=== PATIENT | female | born 1950 | race Caucasian/White ===

== ENCOUNTER 2017-01-30 15:48 | Inpatient (IN) | payer MEDICARE ==
[~2017-01-30] VITALS: Ht 162.6 cm; Wt 62.1 kg
[~2017-01-30 15:48] MED LIST: AMBI12.5 PO; AMOX500C PO; CHLO5CAP3 PO; DIAZ10 PO; FOLI1; FOLI5INJ IJ; LORTA5 PO; NORC7.5T PO; THIA50CA PO; XARE10TA OR
--- NOTE | 2017-01-30 16:09 | PD ---
HPI Chief Complaint: generalized weakness Time Seen by Provider: 16:09 Travel History International Travel<30 days: No Contact w/Intl Traveler<30days: No Traveled to known affect area: No History of Present Illness HPI 66-year-old female came to the emergency room brought by her with history of generalized weakness and near syncopal episodes since 3 PM. However patient has been progressively having dizziness, poor appetite and weak for past few weeks. She has been seen by her primary care as per the patient. However it does not seem like any substantial diagnosis has been made so far. Patient said that she lost about 15 pounds in less than 6 months. At one point she was told by her primary care that her liver functions are elevated. No history of any pain anywhere. She drinks about 2-2 and half glasses of wine every day. Vital signs are stable otherwise. Patient did not have a syncopal episode per se. Patient says that she has been having increased frequency of stool in the past few days. She says the stool feels globby. No blood in her stool PFSH Past Medical History Narrative Medical List of her past medical, surgical, social and family history is reviewed from the nursing note. Blood Disorders: No Anxiety: Yes Depression: Yes Cancer: Yes (LEFT BREAST LUMPECTOMY W/ LYMPH NODE REMOVED ') Cardiovascular Problems: No Diabetes: No Glaucoma: No Genitourinary: Yes Hepatitis: No Hiatal Hernia: No Hypertension: No Immune Disorder: No Musculoskeletal: Yes Neurologic: No Reproductive: No Respiratory: No Thyroid Disease: No Past Surgical History Abdominal Surgery: No Cardiac Surgery: No Ear Surgery: No Endocrine Surgery: No Eye Surgery: No Genitourinary Surgery: No Gynecologic Surgery: Yes (HYSTERECTOMY X 10YRS AGO) Hysterectomy: Yes Oral Surgery: Yes (TONSILLECTOMY / A CHILD) Pacemaker: No Thoracic Surgery: No Tonsillectomy: Yes Other Surgery: Yes (RT HIP) Social History Alcohol Use: Yes (WINE DAILY) Tobacco Use: No Substance Use: No Allergies-Medications (Allergen,Severity, Reaction): Uncoded Allergies: raw egg (Allergy, Unknown, 01/30/17) Comments List of her allergies reviewed from the nursing note. Reported Meds & Prescriptions Reported Meds & Active Scripts Active Reported Atelvia (Risedronate) 35 Mg Tabdr 35 Mg PO Q7D Diazepam 5 Mg Tab 5 Mg PO BID PRN Omeprazole 40 Mg Cap 40 Mg PO BID Atenolol 100 Mg Tab 100 Mg PO DAILY Atenolol 50 Mg Tab 50 Mg PO HS Losartan (Losartan Potassium) 100 Mg Tab 100 Mg PO DAILY Narrative Medication List of her home medications reviewed from the nursing note. Review of Systems Except as stated in HPI: all other systems reviewed are Neg Physical Exam Narrative GENERAL: Awake, alert, moderate distress SKIN: Focused skin assessment warm/dry. Jaundice, spider hemangioma, caput medusae HEAD: Atraumatic. Normocephalic. EYES: Pupils equal and round. Scleral icterus. No injection or drainage. ENT: No nasal bleeding or discharge. Mucous membranes pink and moist. NECK: Trachea midline. No JVD. CARDIOVASCULAR: Regular rate and rhythm. No murmur appreciated. RESPIRATORY: No accessory muscle use. Clear to auscultation. Breath sounds equal bilaterally. GASTROINTESTINAL: Abdomen soft, non-tender, nondistended. Hepatic megaly 5 finger breath below the subcostal margin MUSCULOSKELETAL: No obvious deformities. No clubbing. No cyanosis. No edema. NEUROLOGICAL: Awake and alert. No obvious cranial nerve deficits. Motor grossly within normal limits. Normal speech. PSYCHIATRIC: Appropriate mood and affect; insight and judgment normal. Data Data Last Documented VS Vital Signs Date Time Temp Pulse Resp B/P (MAP) Pulse Ox O2 Delivery O2 Flow Rate FiO2 01/30/17 19:08 92 14 128/71 (90) 100 Room Air 01/30/17 16:13 98.5 Orders Orders Complete Blood Count With Diff (01/30/17 16:54) Comprehensive Metabolic Panel (01/30/17 16:54) Lipase (01/30/17 16:54) Prothrombin Time / Inr (Pt) (01/30/17 16:54) Iv Access Insert/Monitor (01/30/17 16:54) Ecg Monitoring (01/30/17 16:54) Oximetry (01/30/17 16:54) Sodium Chlor 0.9% 1000 Ml Inj (Ns 1000 M (01/30/17 16:54) Sodium Chloride 0.9% Flush (Ns Flush) (01/30/17 17:00) Direct Bilirubin (01/30/17 16:54) Ct Abd/Pel W/O Iv Contrast (01/30/17 ) Admit Order (Ed Use Only) (01/30/17 19:11) Labs Laboratory Tests Test 01/30/17 17:00 White Blood Count 6.5 TH/MM3 Red Blood Count 2.23 MIL/MM3 Hemoglobin 8.5 GM/DL Hematocrit 24.2 % Mean Corpuscular Volume 108.9 FL Mean Corpuscular Hemoglobin 38.1 PG Mean Corpuscular Hemoglobin Concent 35.0 % Red Cell Distribution Width 16.5 % Platelet Count 260 TH/MM3 Mean Platelet Volume 9.0 FL Neutrophils (%) (Auto) 77.6 % Lymphocytes (%) (Auto) 6.6 % Monocytes (%) (Auto) 14.1 % Eosinophils (%) (Auto) 0.5 % Basophils (%) (Auto) 1.2 % Neutrophils # (Auto) 5.0 TH/MM3 Lymphocytes # (Auto) 0.4 TH/MM3 Monocytes # (Auto) 0.9 TH/MM3 Eosinophils # (Auto) 0.0 TH/MM3 Basophils # (Auto) 0.1 TH/MM3 CBC Comment DIFF FINAL Differential Comment Prothrombin Time 12.7 SEC Prothromb Time International Ratio 1.1 RATIO Blood Urea Nitrogen 29 MG/DL Creatinine 2.64 MG/DL Random Glucose 89 MG/DL Total Protein 5.9 GM/DL Albumin 2.7 GM/DL Calcium Level 7.9 MG/DL Alkaline Phosphatase 262 U/L Aspartate Amino Transf (AST/SGOT) 156 U/L Alanine Aminotransferase (ALT/SGPT) 30 U/L Total Bilirubin 1.8 MG/DL Direct Bilirubin 0.8 MG/DL Sodium Level 128 MEQ/L Potassium Level 3.9 MEQ/L Chloride Level 90 MEQ/L Carbon Dioxide Level 24.7 MEQ/L Anion Gap 13 MEQ/L Estimat Glomerular Filtration Rate 18 ML/MIN Lipase 124 U/L [facility] Medical Decision Making Medical Screen Exam Complete: Yes Emergency Medical Condition: Yes Medical Record Reviewed: Yes Differential Diagnosis Pancreatic cancer, CABG cancer, gallbladder cancer, alcoholic hepatitis Narrative Course 5:59 PM blood test results are pending. CAT scan of the abdomen and pelvis is pending. My suspicion is really high for malignancy and obstructive jaundice. She will most probably will need to be admitted. 6:38 PM blood test results of back and patient has significant elevation of her BUN and creatinine. She was given a liter of fluid bolus. Her bilirubin is elevated but not as high as I had expected. Awaiting for the CAT scan. She will require admission. Procedures EKG Prior to Arrival: No Diagnosis Primary Impression: Dehydration Additional Impressions: Acute renal failure Qualified Codes: N17.9 - Acute kidney failure, unspecified Hyperbilirubinemia Generalized weakness Failure to thrive in adult Admitting Information Admitting Physician Requests: Admit Livier Meek MD Jan 30, 2017 16:09
[2017-01-30 16:13] VITALS: BP 118/57; PULSE 107; RESP 15; TEMP 98.5; O2SAT 99
[2017-01-30] MEDS ORDERED: SODIUM CHLOR 0.9% 1000 ML INJ 1,000 ML IV SCH (16:54)
[2017-01-30] MEDS ORDERED: SODIUM CHLORIDE 0.9% FLUSH 10 ML FLUSH IV FLUSH PRN ×2 (17:00→19:30)
[2017-01-30 17:23] VITALS: O2SAT 99
[2017-01-30] MEDS ORDERED: OMEP40CA2 PO (17:58)
[2017-01-30] MEDS ORDERED: ATEN100T PO (17:58)
[2017-01-30] MEDS ORDERED: DIAZ5TAB PO (17:58)
[2017-01-30] MEDS ORDERED: CLON0.1T PO (17:58)
[2017-01-30] MEDS ORDERED: ATELTAB PO (17:58)
[2017-01-30] MEDS ORDERED: LOSA100T PO (17:58)
[2017-01-30] MEDS ORDERED: ATEN50TA PO (17:58)
[2017-01-30 18:09] LABS: BASOPHIL # 0.1 TH/MM3 (0-0.2); BASOPHIL % 1.2 % (0.0-2.0); EOSINOPHIL % 0.5 % (0.0-4.0); HEMATOCRIT 24.2 % (35.0-46.0); HEMO FLAGS DIFF FINAL; LYMPH % 6.6 % (9.0-44.0); LYMPHOCYTE # 0.4 TH/MM3 (1.0-4.8); MEAN CELL VOLUME 108.9 FL (80.0-100.0); MEAN CORPUSCULAR HEMOGLOBIN 38.1 PG (27.0-34.0); MONO % 14.1 % (0.0-8.0); NEUT % 77.6 % (16.0-70.0); PLATELET COUNT 260 TH/MM3 (150-450); RED BLOOD COUNT 2.23 MIL/MM3 (4.00-5.30); RED CELL DISTRIBUTION WIDTH 16.5 % (11.6-17.2); WHITE BLOOD COUNT 6.5 TH/MM3 (4.0-11.0)
[2017-01-30 18:15] LABS: INTERNATIONAL NORMALIZED RATIO 1.1 RATIO; PROTHROMBIN TIME - PATIENT 12.7 SEC (9.8-11.6)
[2017-01-30 18:23] LABS: ALKALINE PHOSPHATASE 262 U/L (45-117); TOTAL BILIRUBIN ADULT 1.8 MG/DL (0.2-1.0)
[2017-01-30 18:25] LABS: ALT (GPT) 30 U/L (10-53); ANION GAP 13 MEQ/L (5-15); AST (GOT) 156 U/L (15-37); BICARBONATE 24.7 MEQ/L (21.0-32.0); BLOOD UREA NITROGEN 29 MG/DL (7-18); CHLORIDE 90 MEQ/L (98-107); GLOMERULAR FILTRATION RATE 18 ML/MIN (>89); POTASSIUM 3.9 MEQ/L (3.5-5.1); SODIUM (NA) 128 MEQ/L (136-145)
[2017-01-30 19:08] VITALS: BP 128/71; PULSE 92; RESP 14; O2SAT 100
[2017-01-30] MEDS ORDERED: ONDANSETRON HCL 4 MG/2 ML VIAL IVP PRN (19:30)
[2017-01-30] MEDS ORDERED: NALOXONE HCL 0.4 MG/ML AMP IV PRN (19:30)
[2017-01-30 20:13] VITALS: BP 128/72; PULSE 90; RESP 16; TEMP 98.1; O2SAT 100
--- NOTE | 2017-01-30 20:25 | RADRPT ---
EXAM DATE/TIME: 01/30/2017 19:35 [facility] COMPARISON: No previous studies available for comparison. INDICATIONS : Abdominal pain and general weakness. ORAL CONTRAST: No oral contrast ingested. RADIATION DOSE: 5.63 CTDIvol (mGy) MEDICAL HISTORY : None SURGICAL HISTORY : Hysterectomy. ENCOUNTER: Initial ACUITY: 1 day PAIN SCALE: 4/10 LOCATION: abdomen TECHNIQUE: Volumetric scanning of the abdomen and pelvis was performed. Using automated exposure control and ad justment of the mA and/or kV according to patient size, radiation dose was kept as low as reasonably achievable to obtain optimal diagnostic quality images. DICOM format image data is available electro nically for review and comparison. FINDINGS: LOWER LUNGS: There is a 4 mm noncalcified pulmonary nodule in the right lower lobe and a 5 mm noncalcified pulmona ry nodule in the left lower lobe. LIVER: Severe diffuse low density without lesion. There is no dilation of the biliary tree. No calcified g allstones. SPLEEN: Normal size without lesion. PANCREAS: Within normal limits. KIDNEYS: Normal in size and shape. There is no mass, stone, or hydronephrosis. ADRENAL GLANDS: Within normal limits. VASCULAR: There is no aortic aneurysm. There is moderate atherosclerotic disease. BOWEL/MESENTERY: The stomach, small bowel, and colon demonstrate no acute abnormality. There is no free intraperitone al air or fluid. There is sigmoid diverticulosis. ABDOMINAL WALL: Within normal limits. RETROPERITONEUM: There is no lymphadenopathy. BLADDER: No wall thickening or mass. REPRODUCTIVE: The uterus is absent. No adnexal abnormality is seen. INGUINAL: There is no lymphadenopathy or hernia. MUSCULOSKELETAL: There is a right hip arthroplasty hardware present causing beam hardening artifact and partial obscur ation of the pelvic structures. Degenerative changes are present at L4-L5 and L5-S1. CONCLUSION: 1. No acute finding is identified to explain the clinical symptoms. 2. There is a 4 mm right lower lobe and 5 mm left lower lobe on pulmonary nodule. Suggest correlating with any prior imaging studies that could confirm longer-term stability. If none are available, sugg est 6 month followup noncontrast chest CT. 3. Nonacute findings include severe hepatic steatosis, moderate atherosclerotic disease, and sigmoid diverticulosis. Coy Bedoya MD on January 30, 2017 at 20:19 Board Certified Radiologist. This report was verified electronically.
[2017-01-30 21:32] VITALS: BP 110/65; PULSE 95; RESP 18; TEMP 97; O2SAT 100
[2017-01-30] MEDS: SODIUM CHLORIDE 0.9% FLUSH 10 ML FLUSH IV FLUSH SCH (22:06)
[2017-01-30 23:54] LABS: BACTERIA, URINE RARE /hpf; BLOOD, URINE NEG (NEG); COMMENT (UR) CULT NOT INDICATED; CULTURE IF INDICATED CULT NOT INDICATED; GLUCOSE,URINE NEG (NEG); KETONE, URINE NEG (NEG); NITRITE,URINE NEG (NEG); PH, URINE 5.5 (5.0-8.5); SQUAMOUS EPITHELIAL CELL URINE 1 /hpf (0-5); URINE COLOR YELLOW (YELLW/STRAW)
--- NOTE | 2017-01-31 01:55 | HHI.HP ---
[facility]PI [facility] Primary [facility] Physician Sabine Nair, DO Admission Diagnosis acute renal failure, failure to thrive, dehydration Diagnoses: Travel History International Travel<30 Days: No Contact w/Intl Traveler <30 Da: No Traveled to Known Affected Are: No History of Present Illness when i got up, i could not stand up, dizzy, heart beating fast , no sweating no nausea at thsi time, but have been a few days time no room spinning no vomiting no syncope, no falls, not hitting head but felt so weak, could not even walk to car, had to call 911 not this bad, but has had other similar eposides went to pcp previously, and was told to go to er if it hapens again but had nausea and diarrhea- but has had it on and off for a while- about 2 weeks diarrhea is more of one large amount, then a few small amounts no black or red color no vomiting no fever had cough a few days - white color mucus, no more cough now no abdominal pain or chest pain or shortness of breath has hx of vertigo no urine symptoms egd - a month ago- found two little ulcers there, but was not actively bleeding ; but had beginning stages of barretts . Dr Covarrubias last clonoscopy about 5yrs ago, was told not due for one now Past Family Social History Past Medical History htn panic attacks RLS Past Surgical History breast cancer left lumpectomy just had one dose of chemo- but refused further s/p radiation 10yrs ago had mammogram yearly right hip orif right hand sx hysterectomy Allergies: Uncoded Allergies: raw egg (Allergy, Unknown, 01/30/17) Family History parents- father- htn mother- htn Social History never a smoker drink etoh about 2 glasses of wine no drugs no longer driving due to vertigo Physical Exam Vital Signs Vital Signs Date Time Temp Pulse Resp B/P (MAP) Pulse Ox O2 Delivery O2 Flow Rate FiO2 01/30/17 21:12 Room Air 01/30/17 20:13 98.1 90 16 128/72 (90) 100 Room Air 01/30/17 19:08 92 14 128/71 (90) 100 Room Air 01/30/17 17:23 99 Room Air 01/30/17 16:13 98.5 107 15 118/57 (77) 99 Room Air Physical Exam GENERAL: This is a well-nourished, well-developed patient, in no apparent distress. SKIN: No rashes, ecchymoses or lesions. Cool and dry. HEAD: Atraumatic. Normocephalic. No temporal or scalp tenderness. EYES: Pupils equal round and reactive. Extraocular motions intact. No scleral icterus. No injection or drainage. ENT: Nose without bleeding, purulent drainage or septal hematoma. Throat without erythema, tonsillar hypertrophy or exudate. Uvula midline. Airway patent. NECK: Trachea midline. No JVD or lymphadenopathy. Supple, nontender, no meningeal signs. CARDIOVASCULAR: Regular rate and rhythm without murmurs, gallops, or rubs. RESPIRATORY: Clear to auscultation. Breath sounds equal bilaterally. No wheezes , rales, or rhonchi. GASTROINTESTINAL: Abdomen soft, non-tender, nondistended. No hepato-splenomegaly , or palpable masses. No guarding. MUSCULOSKELETAL: Extremities without clubbing, cyanosis, or edema. No joint tenderness, effusion, or edema noted. No calf tenderness. Negative Homans sign bilaterally. NEUROLOGICAL: Awake and alert. Cranial nerves II through XII intact. Motor and sensory grossly within normal limits. Five out of 5 muscle strength in all muscle groups. Normal speech. Laboratory Laboratory Tests Test 01/30/17 17:00 01/30/17 23:12 White Blood Count 6.5 Red Blood Count 2.23 Hemoglobin 8.5 Hematocrit 24.2 Mean Corpuscular Volume 108.9 Mean Corpuscular Hemoglobin 38.1 Mean Corpuscular Hemoglobin Concent 35.0 Red Cell Distribution Width 16.5 Platelet Count 260 Mean Platelet Volume 9.0 Neutrophils (%) (Auto) 77.6 Lymphocytes (%) (Auto) 6.6 Monocytes (%) (Auto) 14.1 Eosinophils (%) (Auto) 0.5 Basophils (%) (Auto) 1.2 Neutrophils # (Auto) 5.0 Lymphocytes # (Auto) 0.4 Monocytes # (Auto) 0.9 Eosinophils # (Auto) 0.0 Basophils # (Auto) 0.1 CBC Comment DIFF FINAL Differential Comment Prothrombin Time 12.7 Prothromb Time International Ratio 1.1 Blood Urea Nitrogen 29 Creatinine 2.64 Random Glucose 89 Total Protein 5.9 Albumin 2.7 Calcium Level 7.9 Alkaline Phosphatase 262 Aspartate Amino Transf (AST/SGOT) 156 Alanine Aminotransferase (ALT/SGPT) 30 Total Bilirubin 1.8 Direct Bilirubin 0.8 Sodium Level 128 Potassium Level 3.9 Chloride Level 90 Carbon Dioxide Level 24.7 Anion Gap 13 Estimat Glomerular Filtration Rate 18 Lipase 124 Urine Color YELLOW Urine Turbidity CLEAR Urine pH 5.5 Urine Specific [place] 1.006 Urine Protein NEG Urine Glucose (UA) NEG Urine Ketones NEG Urine Occult Blood NEG Urine Nitrite NEG Urine Bilirubin NEG Urine Urobilinogen LESS THAN 2.0 Urine Leukocyte Esterase NEG Urine RBC LESS THAN 1 Urine WBC 2 Urine Squamous Epithelial Cells 1 Urine Amorphous Sediment RARE Urine Bacteria RARE Microscopic Urinalysis Comment CULT NOT INDICATED Result Diagram: 01/30/17169901/30/171699 Caprini VTE Risk Assessment Caprini Risk Assessment Model Point Value = 1 Point Value = 2 Point Value = 3 Point Value = 5 Age 41-60 Minor surgery BMI > 25 kg/m2 Swollen legs Varicose veins or History of unexplained or recurrent spontaneous Oral contraceptives or hormone replacement Sepsis (< 1 month) Serious lung disease, including pneumonia (< 1 month) Abnormal pulmonary function Acute myocardial infarction Congestive heart failure (< 1 month) History of inflammatory bowel disease Medical patient at bed rest Age 61-74 Arthroscopic surgery Major open surgery (> 45 min) Laparoscopic surgery (> 45 min) Malignancy Confined to bed (> 72 hours) Immobilizing plaster cast Central venous access Age >= 75 History of VTE Family history of VTE Factor V Leiden Prothrombin [id number] Lupus anticoagulant Anticardiolipin antibodies Elevated serum homocysteine Heparin-induced thrombocytopenia Other congenital or acquired thrombophilia Stroke (< 1 month) Elective arthroplasty Hip, pelvis, or leg fracture Acute spinal cord injury (< 1 month) Prophylaxis Regimen Total Risk Factor Score Risk Level Prophylaxis Regimen 0-1 Low Early ambulation 2 Moderate Order ONE of the following: *Sequential Compression Device (SCD) *Heparin 5000 units SQ BID 3-4 Higher Order ONE of the following medications: *Heparin 5000 units SQ TID *Enoxaparin/Lovenox 40 mg SQ daily (WT < 150 kg, CrCl > 30 mL/min) *Enoxaparin/Lovenox 30 mg SQ daily (WT < 150 kg, CrCl > 10-29 mL/min) *Enoxaparin/Lovenox 30 mg SQ BID (WT < 150 kg, CrCl > 30 mL/min) AND/OR *Sequential Compression Device (SCD) 5 or more Highest Order ONE of the following medications: *Heparin 5000 units SQ TID (Preferred with Epidurals) *Enoxaparin/Lovenox 40 mg SQ daily (WT < 150 kg, CrCl > 30 mL/min) *Enoxaparin/Lovenox 30 mg SQ daily (WT < 150 kg, CrCl > 10-29 mL/min) *Enoxaparin/Lovenox 30 mg SQ BID (WT < 150 kg, CrCl > 30 mL/min) AND *Sequential Compression Device (SCD) Assessment and Plan Assessment and Plan near syncope- in setting of chronic vertigo. Question whether orthostatics as well acute renal failure acute liver failure - underlying cirrhosis vs acute hepatitis anemia- acute on chronic - recent egd with early barretts macrocytosis- etoh induced? - check tsh, b12, folate hyponatremia- likely poor oral intake iv hydration repeat labs in am tsh, folate, hepatitis profile echo, carotid abdominal US -to evaluate for liver and kidney Physician Certification Order for Inpatient Services The services are ordered in accordance with Medicare regulations or non- Medicare payer requirements, as applicable. In the case of services not specified as inpatient-only, they are appropriately provided as inpatient services in accordance with the 2-midnight benchmark. days is the estimated time the patient will need to remain in the hospital, assuming treatment plan goals are met and no additional complications. Yariel Cano MD Jan 31, 2017 01:55
[2017-01-31] MEDS: SODIUM CHLOR 0.9% 1000 ML INJ 1,000 ML IV SCH ×3 (02:57→22:50)
[2017-01-31] MEDS ORDERED: LORazepam 0.5 MG TAB PO ONE (04:15)
[2017-01-31 05:05] VITALS: BP 138/65; PULSE 108; RESP 17; TEMP 98.2; O2SAT 99
[2017-01-31 08:00] VITALS: BP 127/76; PULSE 74; PULSE 76; RESP 17; TEMP 97.6; O2SAT 97
[2017-01-31 08:11] LABS: AUTOMATED NEUTROPHIL # 3.6 TH/MM3 (1.8-7.7); BASOPHIL % 0.9 % (0.0-2.0); EOSINOPHIL # 0.1 TH/MM3 (0-0.4); EOSINOPHIL % 1.4 % (0.0-4.0); HEMATOCRIT 22.4 % (35.0-46.0); HEMO FLAGS DIFF FINAL; LYMPH % 12.7 % (9.0-44.0); LYMPHOCYTE # 0.7 TH/MM3 (1.0-4.8); MEAN CELL VOLUME 110.1 FL (80.0-100.0); MEAN CORPUSCULAR HEMOGLOBIN 36.8 PG (27.0-34.0); MEAN CORPUSCULAR HGB CONC 33.4 % (32.0-36.0); MONO % 15.3 % (0.0-8.0); NEUT % 69.7 % (16.0-70.0); PLATELET COUNT 240 TH/MM3 (150-450); RED BLOOD COUNT 2.03 MIL/MM3 (4.00-5.30); RED CELL DISTRIBUTION WIDTH 16.2 % (11.6-17.2); WHITE BLOOD COUNT 5.2 TH/MM3 (4.0-11.0)
[2017-01-31 08:32] LABS: ALT (GPT) 30 U/L (10-53); ANION GAP 9 MEQ/L (5-15); AST (GOT) 150 U/L (15-37); BICARBONATE 25.7 MEQ/L (21.0-32.0); BLOOD UREA NITROGEN 31 MG/DL (7-18); CHLORIDE 97 MEQ/L (98-107); GLOMERULAR FILTRATION RATE 18 ML/MIN (>89); POTASSIUM 3.7 MEQ/L (3.5-5.1); SODIUM (NA) 132 MEQ/L (136-145)
[2017-01-31 08:34] LABS: ALKALINE PHOSPHATASE 237 U/L (45-117); TOTAL BILIRUBIN ADULT 1.3 MG/DL (0.2-1.0)
[2017-01-31] MEDS: SODIUM CHLORIDE 0.9% FLUSH 10 ML FLUSH IV FLUSH SCH ×2 (09:00→22:49)
[2017-01-31] MEDS: PANTOPRAZOLE SOD 40 MG DELAYED RELEASE TAB PO SCH (09:30)
[2017-01-31] MEDS: DIAZEPAM 5 MG TAB PO PRN ×2 (09:31→20:33)
--- NOTE | 2017-01-31 09:49 | RADRPT ---
EXAM DATE/TIME: 01/31/2017 08:03 [facility] COMPARISON: No previous studies available for comparison. INDICATIONS : General weakness, near syncope. MEDICAL HISTORY : General weakness, near syncope. SURGICAL HISTORY : Tonsillectomy. Right thumb surgery. Hysterectomy. Left breast lumpectomy. ENCOUNTER: Initial ACUITY: 1 week PAIN SCORE: 0/10 LOCATION: Bilateral neck PEAK SYSTOLIC VELOCITIES (cm/sec): ICA/CCA RATIO: Right: 1.7 Left: 0.98 ICA: Right: 130 Left: 77 CCA: Right: 75 Left: 78 ECA: Right: 54 Left: 55 VERTEBRAL: Right: 45 antegrade Left: 58 antegrade Elevated flow velocities and ICA/CCA ratios have been found to correlate with increased degrees of vessel stenosis, calculated as percentage of diameter relative to a normal segment of distal ICA/CCA FINDINGS: RIGHT CAROTID: Mild plaque with increased ICA velocities corresponding to moderate stenosis. LEFT CAROTID: Mild plaque. No significant stenosis is visualized. The waveforms are within normal limits. VERTEBRAL ARTERIES: Antegrade flow is seen in both vertebral arteries. MISCELLANEOUS: None. CONCLUSION: 1. Mild right carotid plaque with velocities corresponding to moderate, 50-69%, stenosis. Suspect donovan t this is artifactually elevated with overall imaging features most consistent with mild, less than 5 0%, stenosis. 2. No hemodynamically significant left carotid stenosis. 3. Antegrade vertebral artery flow bilaterally. Jb Alvarez MD on January 31, 2017 at 9:43 Board Certified Radiologist. This report was verified electronically.
--- NOTE | 2017-01-31 10:34 | RADRPT ---
EXAM DATE/TIME: 01/31/2017 08:03 [facility] COMPARISON: CT ABDOMEN & PELVIS W/O CONTRAST, January 30, 2017, 19:35. INDICATIONS : Liver and kidney failure. MEDICAL HISTORY : Liver and kidney failure. SURGICAL HISTORY : Tonsillectomy. Right thumb surgery. Hysterectomy. Left breast lumpectomy. ENCOUNTER: Initial ACUITY: 1 day PAIN SCORE: 0/10 LOCATION: Bilateral upper quadrant MEASUREMENTS: LIVER: 17.5 cm length COMMON DUCT: 5 mm RIGHT KIDNEY: 10.9 x 4.7 x 5.2 cm LEFT KIDNEY: 10.8 x 4.5 x 5.6 cm SPLEEN: 9.4 cm length AORTA: 2.0cm maximal FINDINGS: LIVER: The liver is diffusely echogenic. No mass or ductal dilatation. Hepatopedal flow within the portal ve in. COMMON DUCT: No intraluminal mass or stone visualized. GALLBLADDER: Contains no stones, demonstrates no wall thickening or pericholecystic fluid. PANCREAS: The visualized portions are within normal limits. RIGHT KIDNEY: No hydronephrosis, stone or mass. LEFT KIDNEY: No hydronephrosis, stone or mass. SPLEEN: No focal lesion. AORTA: Non aneurysmal. IVC: Within normal limits. CONCLUSION: 1. Hepatic steatosis. Edwar Betts Jr., MD on January 31, 2017 at 10:23 Board Certified Radiologist. This report was verified electronically.
[2017-01-31 12:00] VITALS: BP_SYST 122; BP_SYST 125; BP_SYST 134; BP_DIAS 67; BP_DIAS 72; BP_DIAS 81; PULSE 101; RESP 17; TEMP 95.9; O2SAT 100
--- NOTE | 2017-01-31 13:53 | HHI.PR ---
Subjective Remarks Follow-up for dizziness/lightheadedness No further episodes of presyncope or lightheadedness. Has been walking to the bathroom. He feels a lot better. Denies any chest pain, no urinary symptoms. History about diarrhea, allegedly not loose but not her normal bowel movements. Objective Vitals Vital Signs Date Time Temp Pulse Resp B/P (MAP) Pulse Ox O2 Delivery O2 Flow Rate FiO2 01/31/17 12:00 95.9 101 17 122/72 (89) 100 134/81 (98) 125/67 (86) 01/31/17 08:00 97.6 76 17 127/76 (93) 97 01/31/17 05:05 98.2 108 17 138/65 (89) 99 01/30/17 21:32 97.0 95 18 110/65 (80) 100 01/30/17 21:12 Room Air 01/30/17 20:13 98.1 90 16 128/72 (90) 100 Room Air 01/30/17 19:08 92 14 128/71 (90) 100 Room Air 01/30/17 17:23 99 Room Air 01/30/17 16:13 98.5 107 15 118/57 (77) 99 Room Air I/O 01/30/17 01/30/17 01/30/17 01/31/17 01/31/17 01/31/17 07:00 15:00 23:00 07:00 15:00 23:00 Intake Total 1120 ml 680 ml Output Total 1 ml Balance 1120 ml 679 ml Intake Oral 120 ml 480 ml IV Total 1000 ml 200 ml Output Urine Total 1 ml # Voids 1 # Bowel Movements 0 0 Result Diagram: 01/31/17 0715 01/31/17 0715 Objective Remarks Not in distress PERRL, pink conjunctiva without injection, anicteric Nose without bleeding, airway patent, oropharynx clear Supple neck, no masses or thyromegaly, trachea midline Regular rate and rhythm, no murmurs Clear to auscultation and symmetric bilaterally, normal respiratory effort. Normal bowel sounds, soft, non-tender, nondistended, no guarding. Extremities without clubbing, cyanosis, or edema. No rash of generalized distribution. Skin is warm and dry. AAO x3, no cranial nerve deficits, moves all 4 extremities, no focal neurologic deficits A/P Problem List: (1) Generalized weakness ICD Code: R53.1 - Weakness Status: Acute (2) Acute renal failure ICD Code: N17.9 - Acute kidney failure, unspecified Status: Acute (3) Dehydration ICD Code: E86.0 - Dehydration Status: Acute Assessment and Plan This is a 66-year-old female admitted for presyncope Presyncope-in setting of chronic vertigo, orthostatics negative. Likely secondary to hypovolemia, increase IVF. Carotid ultrasound showed moderate stenosis 50-69% on the right, minimal stenosis of the left. Follow-up echocardiogram. Acute renal failure-increase normal saline 225 cc/h, check BMP tomorrow. No hydronephrosis on CT scan of the abdomen. Anemia-? Etiology, check iron panel, previous history of Emery's esophagus. Patient has macrocytosis, vitamin B 12 and folic acid good. TSH within normal limits. Mild AST ALT elevation- ultrasound of the liver showed hepato-steatosis, doubt cirrhosis, check hepatitis serology. Hyponatremia-likely from hypovolemia, recheck BMP tomorrow, continue normal saline. PT evaluation Heparin for DVT prophylaxis Discussed with and . Discharge Planning Possible discharge tomorrow Problem Qualifiers (1) Acute renal failure: Qualified Codes: N17.9 - Acute kidney failure, unspecified Linda Zuniga MD Jan 31, 2017 13:53
[2017-01-31 16:00] VITALS: BP 168/70; PULSE 80; RESP 17; TEMP 96.6; O2SAT 94
[2017-01-31 20:20] VITALS: BP 123/72; PULSE 104; RESP 17; TEMP 96.6; O2SAT 97
[2017-01-31] MEDS: HEPARIN SODIUM - SQ 10,000 UNITS/ML VIAL SQ SCH (20:31)
[2017-02-01 00:30] VITALS: BP_SYST 115; BP_SYST 119; BP_DIAS 63; BP_DIAS 71; BP_DIAS 73; PULSE 115; RESP 17; TEMP 98.2; O2SAT 100
[2017-02-01 04:55] VITALS: BP 130/84; PULSE 100; RESP 16; TEMP 97.1; O2SAT 97
[2017-02-01] MEDS: SODIUM CHLOR 0.9% 1000 ML INJ 1,000 ML IV SCH ×4 (06:00→22:54)
[2017-02-01 07:13] LABS: AUTOMATED NEUTROPHIL # 3.4 TH/MM3 (1.8-7.7); BASOPHIL # 0.1 TH/MM3 (0-0.2); EOSINOPHIL # 0.1 TH/MM3 (0-0.4); EOSINOPHIL % 1.2 % (0.0-4.0); HEMATOCRIT 21.3 % (35.0-46.0); HEMO FLAGS DIFF FINAL; LYMPH % 18.2 % (9.0-44.0); LYMPHOCYTE # 0.9 TH/MM3 (1.0-4.8); MEAN CELL VOLUME 110.4 FL (80.0-100.0); MEAN CORPUSCULAR HEMOGLOBIN 38.3 PG (27.0-34.0); MEAN CORPUSCULAR HGB CONC 34.7 % (32.0-36.0); MONO % 13.7 % (0.0-8.0); NEUT % 65.9 % (16.0-70.0); PLATELET COUNT 227 TH/MM3 (150-450); RED BLOOD COUNT 1.93 MIL/MM3 (4.00-5.30); RED CELL DISTRIBUTION WIDTH 16.2 % (11.6-17.2); WHITE BLOOD COUNT 5.2 TH/MM3 (4.0-11.0)
[2017-02-01] MEDS: HEPARIN SODIUM - SQ 10,000 UNITS/ML VIAL SQ SCH ×2 (07:32→22:54)
[2017-02-01] MEDS: PANTOPRAZOLE SOD 40 MG DELAYED RELEASE TAB PO SCH (07:32)
[2017-02-01] MEDS: SODIUM CHLORIDE 0.9% FLUSH 10 ML FLUSH IV FLUSH SCH ×2 (07:32→22:54)
[2017-02-01 07:46] LABS: ANION GAP 10 MEQ/L (5-15); BICARBONATE 20.7 MEQ/L (21.0-32.0); BLOOD UREA NITROGEN 29 MG/DL (7-18); CHLORIDE 104 MEQ/L (98-107); FERRITIN 563 NG/ML (8-252); GLOMERULAR FILTRATION RATE 21 ML/MIN (>89); POTASSIUM 3.3 MEQ/L (3.5-5.1); SODIUM (NA) 135 MEQ/L (136-145); TRANSFERRIN IRON PROFILE 110 MG/DL (200-360)
[2017-02-01 08:00] VITALS: BP 151/88; PULSE 98; RESP 17; TEMP 97.5; O2SAT 98
[2017-02-01 08:33] LABS: CALCIUM-PROTEIN CORRECTED 7.8 MG/DL (8.5-10.1)
[2017-02-01 11:23] VITALS: BP_SYST 147; BP_SYST 148; BP_DIAS 77; BP_DIAS 82; PULSE 98; RESP 16; TEMP 95.8; O2SAT 100
--- NOTE | 2017-02-01 12:40 | ECHRPT ---
Indication: SYNCOPE CONCLUSIONS Normal left ventricular size. Wall thickness is normal. The left ventricular systolic function is normal with an estimated ejection fraction in the range of 55-60%. Mitral annular calcification is present. Lkdm-[id number] mitral valve regurgitation. There is moderate tricuspid regurgitation. There is estimated mild pulmonary hypertension present (42 mmHg). BP: 115 / 63 HR: 115 Rhythm: Sinus MEASUREMENTS (Male / Female) Normal Values Technical Quality:Good 2D ECHO LV Diastolic Diameter PLAX 3.9 cm 4.2 - 5.9 / 3.9 - 5.3 cm LV Systolic Diameter PLAX 2.8 cm IVS Diastolic Thickness 0.7 cm 0.6 - 1.0 / 0.6 - 0.9 cm LVPW Diastolic Thickness 0.6 cm 0.6 - 1.0 / 0.6 - 0.9 cm LV Relative Wall Thickness 0.3 LA Systolic Diameter LX 3.3 cm 3.0 - 4.0 / 2.7 - 3.8 cm M-MODE Aortic Root Diameter MM 3.3 cm AV Cusp Separation MM 1.9 cm DOPPLER Mitral E Point Velocity 74.0 cm/s Mitral A Point Velocity 52.8 cm/s Mitral E to A Ratio 1.4 TR Peak Velocity 284.0 cm/s TR Peak Gradient 32.3 mmHg FINDINGS LEFT VENTRICLE Normal left ventricular size. Wall thickness is normal. The left ventricular systolic function is normal with an estimated ejection fraction in the range of 55-60%. RIGHT VENTRICLE Normal right ventricular size and systolic function. LEFT ATRIUM The left atrial size is normal. RIGHT ATRIUM The right atrial size is normal. ATRIAL SEPTUM Normal atrial septal thickness without atrial level shunting by limited color doppler interrogation. AORTA The aortic root and proximal ascending aorta are normal in size on limited imaging. MITRAL VALVE Mitral annular calcification is present. Czyu-rg-[id number] mitral valve regurgitation. AORTIC VALVE Trileaflet aortic valve. No aortic valve stenosis or regurgitation. TRICUSPID VALVE There is moderate tricuspid regurgitation. There is estimated mild pulmonary hypertension present (42 mmHg). PULMONARY VALVE The pulmonary valve is not well visualized. VESSELS The inferior vena cava is normal in size. PERICARDIUM No pericardial effusion. Moreno Grady MD, FACC (Electronically Signed) Final Date:01 February 2017 12:39
--- NOTE | 2017-02-01 13:06 | HHI.PR ---
Subjective Remarks Follow-up for dizziness Dizziness better, no lightheadedness. Denies any chest pain or shortness of breath. Good urine output. Objective Vitals Vital Signs Date Time Temp Pulse Resp B/P (MAP) Pulse Ox O2 Delivery O2 Flow Rate FiO2 02/01/17 11:23 95.8 98 16 148/77 (100) 100 147/82 (103) 02/01/17 08:00 97.5 98 17 151/88 (109) 98 02/01/17 04:55 97.1 100 16 130/84 (99) 97 02/01/17 00:30 98.2 115 17 115/63 (80) 100 119/73 (88) 119/71 (87) 01/31/17 20:20 96.6 104 17 123/72 (89) 97 01/31/17 16:00 96.6 80 17 168/70 (102) 94 I/O 01/31/17 01/31/17 01/31/17 02/01/17 02/01/17 02/01/17 06:59 14:59 22:59 06:59 14:59 22:59 Intake Total 680 ml 400 ml 1240 ml 240 ml Output Total 1 ml Balance 679 ml 400 ml 1240 ml 240 ml Intake Oral 480 ml 400 ml 240 ml 240 ml IV Total 200 ml 1000 ml Output Urine Total 1 ml # Voids 0 2 4 # Bowel Movements 0 0 0 0 Result Diagram: 02/01/17 0555 02/01/17 0555 Objective Remarks Not in distress PERRL, pink conjunctiva without injection, anicteric Regular rate and rhythm, no murmurs Clear to auscultation and symmetric bilaterally, normal respiratory effort. Normal bowel sounds, soft, non-tender, nondistended, no guarding. No edema AAO x3, no cranial nerve deficits, moves all 4 extremities, no focal neurologic deficits A/P Problem List: (1) Generalized weakness ICD Code: R53.1 - Weakness Status: Acute (2) Acute renal failure ICD Code: N17.9 - Acute kidney failure, unspecified Status: Acute (3) Dehydration ICD Code: E86.0 - Dehydration Status: Acute Assessment and Plan This is a 66-year-old female admitted for presyncope Presyncope-in setting of chronic vertigo, orthostatics negative. Likely secondary to hypovolemia, increase IVF. Carotid ultrasound showed moderate stenosis 50-69% on the right, minimal stenosis of the left. Echocardiogram showed EF 55-60%. Acute renal failure- Creatinine better, but not back to baseline, Cont IVF, increased to 1 75 cc/h. No hydronephrosis on CT scan of the abdomen. Recheck BMP tomorrow Mixed anemia of chronic disease and iron deficiency anemia-start iron sucrose. Patient has macrocytosis, vitamin B 12 and folic acid good. TSH within normal limits. Check fecal occult blood. Recheck CBC tomorrow Mild AST ALT elevation- ultrasound of the liver showed hepato-steatosis, doubt cirrhosis, check hepatitis serology pending. Recheck LFTs Hyponatremia-likely from hypovolemia, better, continue IVF Hypocalcemia-replaced Hypokalemia-replaced Heparin for DVT prophylaxis Discharge Planning Discharged with home health physical therapy once creatinine is trending down. Problem Qualifiers (1) Acute renal failure: Qualified Codes: N17.9 - Acute kidney failure, unspecified Linda Zuniga MD Feb 01, 2017 13:06
[2017-02-01] MEDS ORDERED: CALCIUM GLUCONATE INJ 1 GM in SODIUM CHLORIDE 0.9% INJ 100 ML IV ONE (14:00)
[2017-02-01] MEDS ORDERED: POTASSIUM CHLORIDE 25 MEQ EFFERVESCENT TAB PO ONE (14:00)
--- NOTE | 2017-02-01 15:31 | HHI.FF ---
Face to Face Verification Diagnosis: (1) Acute renal failure (2) Generalized weakness Physical Therapy Order: Evaluate and Treat Home Health Nursing Order: Medical education Signs/symptoms of disease process Nursing assessment with vital signs I have seen patient Barbra Ardon on 02/01/17. My clinical findings support the need for the requested home health care services because: Limited ability to care for self I certify that my clinical findings support that this patient is homebound because: Unsteady gait/balance Linda Zuniga MD Feb 01, 2017 15:31
[2017-02-01] MEDS: IRON SUCROSE INJ 100 MG in SODIUM CHLORIDE 0.9% INJ 100 ML IV SCH (15:49)
[2017-02-01 16:50] VITALS: BP_SYST 139; BP_DIAS 65; BP_DIAS 75; PULSE 114; RESP 16; TEMP 95.6; O2SAT 99
[2017-02-01] MEDS: DIAZEPAM 5 MG TAB PO PRN (16:58)
[2017-02-01 20:55] VITALS: BP 151/91; PULSE 116; RESP 18; TEMP 98.6; O2SAT 100
[2017-02-02 07:47] VITALS: BP 136/78; PULSE 93; RESP 18; TEMP 96; O2SAT 99
[2017-02-02 07:57] LABS: AUTOMATED NEUTROPHIL # 3.5 TH/MM3 (1.8-7.7); BASOPHIL # 0.1 TH/MM3 (0-0.2); EOSINOPHIL # 0.1 TH/MM3 (0-0.4); HEMATOCRIT 23.3 % (35.0-46.0); LYMPHOCYTE # 0.8 TH/MM3 (1.0-4.8); MEAN CELL VOLUME 111.5 FL (80.0-100.0); MEAN CORPUSCULAR HEMOGLOBIN 36.7 PG (27.0-34.0); MEAN CORPUSCULAR HGB CONC 32.9 % (32.0-36.0); MONO % 14.3 % (0.0-8.0); NEUT % 66.7 % (16.0-70.0); PLATELET COUNT 204 TH/MM3 (150-450); RED BLOOD COUNT 2.09 MIL/MM3 (4.00-5.30); RED CELL DISTRIBUTION WIDTH 16.1 % (11.6-17.2); WHITE BLOOD COUNT 5.3 TH/MM3 (4.0-11.0)
[2017-02-02 07:59] LABS: HEMO FLAGS AUTO DIFF
[2017-02-02 08:11] LABS: BICARBONATE 20.3 MEQ/L (21.0-32.0); POTASSIUM 3.6 MEQ/L (3.5-5.1)
[2017-02-02 08:14] LABS: CALCIUM-PROTEIN CORRECTED 8.2 MG/DL (8.5-10.1); INDIRECT BILIRUBIN 0.2 MG/DL (0.0-0.8); TOTAL BILIRUBIN ADULT 0.8 MG/DL (0.2-1.0)
[2017-02-02] MEDS: PANTOPRAZOLE SOD 40 MG DELAYED RELEASE TAB PO SCH (08:33)
[2017-02-02] MEDS: SODIUM CHLORIDE 0.9% FLUSH 10 ML FLUSH IV FLUSH SCH ×2 (08:33→22:20)
[2017-02-02] MEDS: HEPARIN SODIUM - SQ 10,000 UNITS/ML VIAL SQ SCH ×2 (08:33→22:20)
[2017-02-02] MEDS: SODIUM CHLOR 0.9% 1000 ML INJ 1,000 ML IV SCH ×2 (08:37→13:17)
[2017-02-02 09:30] LABS: BANDS 2 % (0-6); BASOPHILS 1 % (0-2); EOSINOPHILS 2 % (0-4); METAMYELOCYTES 2 % (0-1); MYELOCYTES 1 % (0-0); NEUTROPHIL # MANUAL DIFF 3.9 TH/MM3 (1.8-7.7); POLYS (SEG NEUTROPHILS) 66 % (16-70); PROMYELOCYTES 3 % (0-0); WBC DIFF SAMPLE 100
[2017-02-02 09:35] LABS: PLATELET ESTIMATE SMEAR NORMAL (NORMAL); PLATELET MORPHOLOGY NORMAL (NORMAL); SCAN/DIFF FINAL DIFF MANUAL
[2017-02-02] MEDS: IRON SUCROSE INJ 100 MG in SODIUM CHLORIDE 0.9% INJ 100 ML IV SCH (10:25)
[2017-02-02 11:38] VITALS: BP 196/88; PULSE 98; RESP 17; TEMP 96.5; O2SAT 100
[2017-02-02] MEDS: DIAZEPAM 5 MG TAB PO PRN (12:08)
[2017-02-02] MEDS ORDERED: ATENOLOL 50 MG TAB PO ONE (13:00)
--- NOTE | 2017-02-02 13:31 | HHI.PR ---
Subjective Remarks Follow up renal failure, anemia, hypertension. Patient states that she feels better today. Denies chest pain, dyspnea, nausea, vomiting. Blood pressure has been running high. Objective Vitals Vital Signs Date Time Temp Pulse Resp B/P (MAP) Pulse Ox O2 Delivery O2 Flow Rate FiO2 02/02/17 11:38 96.5 98 17 196/88 (124) 100 02/02/17 07:47 96.0 93 18 136/78 (97) 99 02/01/17 20:55 98.6 116 18 151/91 (111) 100 02/01/17 16:50 95.6 114 16 139/75 (96) 99 139/65 (89) I/O 02/01/17 02/01/17 02/01/17 02/02/17 02/02/17 02/02/17 06:59 14:59 22:59 06:59 14:59 22:59 Intake Total 240 ml 600 ml 2096 ml 120 ml Balance 240 ml 600 ml 2096 ml 120 ml Intake Oral 240 ml 600 ml 240 ml 120 ml IV Total 1856 ml # Voids 4 2 3 2 # Bowel Movements 0 0 0 0 Result Diagram: 02/02/1772302/02/17 0724 Imaging Last Impressions Carotid Artery Ultrasound 01/31/17 0000 Signed Impressions: Service Date/Time: Tuesday, January 31, 2017 08:03 - CONCLUSION: 1. Mild right carotid plaque with velocities corresponding to moderate, 50-69%%, stenosis. Suspect that this is artifactually elevated with overall imaging features most consistent with mild, less than 50%%, stenosis. 2. No hemodynamically significant left carotid stenosis. 3. Antegrade vertebral artery flow bilaterally. Jb Alvarez MD Abdomen Ultrasound 01/31/17 0000 Signed Impressions: Service Date/Time: Tuesday, January 31, 2017 08:03 - CONCLUSION: 1. Hepatic steatosis. Edwar Betts Jr., MD Abdomen/Pelvis CT 01/30/17 0000 Signed Impressions: Service Date/Time: Monday, January 30, 2017 19:35 - CONCLUSION: 1. No acute finding is identified to explain the clinical symptoms. 2. There is a 4 mm right lower lobe and 5 mm left lower lobe on pulmonary nodule. Suggest correlating with any prior imaging studies that could confirm longer-term stability. If none are available, suggest 6 month followup noncontrast chest CT. 3. Nonacute findings include severe hepatic steatosis, moderate atherosclerotic disease, and sigmoid diverticulosis. Coy Bedoya MD Objective Remarks General: No acute distress. Heart: Regular rate and rhythm. No murmur. Lungs: Clear to auscultation bilaterally. No wheezes, rales, or rhonchi. Breathing is nonlabored. Abdomen: Soft, nontender, nondistended. Extremities: No lower extremity edema. Psych: Alert and oriented. Procedures None Urinary Catheter: No Vascular Central Line Catheter: No A/P Problem List: (1) Generalized weakness ICD Code: R53.1 - Weakness Status: Acute (2) Acute renal failure ICD Code: N17.9 - Acute kidney failure, unspecified Status: Acute (3) Dehydration ICD Code: E86.0 - Dehydration Status: Acute (4) Anemia ICD Code: D64.9 - Anemia, unspecified (5) Hypertension ICD Code: I10 - Essential (primary) hypertension Assessment and Plan 1. Presyncope: Patient has chronic vertigo. Orthostatic vital signs are negative. Symptoms likely secondary to hypovolemia. Continue IV fluids. Carotid ultrasound shows moderate stenosis on the right, minimal stenosis on the left. Echocardiogram showed ejection fraction 55-60%. 2. Acute renal failure: Creatinine improving. Continue IV fluids, decrease weight. Recheck BUN and creatinine in the morning. 3. Anemia: Secondary to anemia of chronic disease and iron deficiency anemia. Continue IV iron, dose #2 of 3 today. Monitor H&H. 4. Hypertension: Restart atenolol. Decrease IV fluids. 5. DVT prophylaxis: Heparin. Discharge Planning Possible discharge home with home health physical therapy tomorrow. Problem Qualifiers (1) Acute renal failure: Qualified Codes: N17.9 - Acute kidney failure, unspecified (2) Anemia: Berto Hernandez MD Feb 02, 2017 13:31
[2017-02-02 15:39] VITALS: BP 167/87; PULSE 96; RESP 17; TEMP 96.2; O2SAT 99
[2017-02-02 19:25] VITALS: BP 165/94; PULSE 100; RESP 20; TEMP 97.1; O2SAT 99
[2017-02-02] MEDS ORDERED: ATENOLOL 50 MG TAB PO SCH (21:00)
[2017-02-02 23:15] VITALS: BP 188/89; PULSE 100; RESP 16; TEMP 98.4; O2SAT 99
[2017-02-03] MEDS ORDERED: cloNIDine HCL 0.1 MG TAB PO ONE (00:45)
[2017-02-03 02:45] VITALS: BP 157/78; PULSE 91; RESP 16; TEMP 97.3; O2SAT 98
[2017-02-03 06:41] LABS: BASOPHIL # 0.1 TH/MM3 (0-0.2); BASOPHIL % 0.9 % (0.0-2.0); EOSINOPHIL # 0.1 TH/MM3 (0-0.4); EOSINOPHIL % 2.4 % (0.0-4.0); HEMATOCRIT 22.8 % (35.0-46.0); LYMPH % 16.6 % (9.0-44.0); MEAN CELL VOLUME 110.5 FL (80.0-100.0); MEAN CORPUSCULAR HEMOGLOBIN 36.7 PG (27.0-34.0); MEAN CORPUSCULAR HGB CONC 33.2 % (32.0-36.0); MONO % 14.4 % (0.0-8.0); NEUT % 65.7 % (16.0-70.0); PLATELET COUNT 201 TH/MM3 (150-450); RED BLOOD COUNT 2.06 MIL/MM3 (4.00-5.30); RED CELL DISTRIBUTION WIDTH 15.7 % (11.6-17.2)
[2017-02-03 07:06] LABS: HEMO FLAGS AUTO DIFF
[2017-02-03 07:23] LABS: BICARBONATE 18.9 MEQ/L (21.0-32.0); POTASSIUM 3.1 MEQ/L (3.5-5.1)
[2017-02-03 07:59] LABS: CALCIUM-PROTEIN CORRECTED 8.2 MG/DL (8.5-10.1)
[2017-02-03] MEDS ORDERED: POTASSIUM CHLORIDE 10 MEQ CONTROLLED RELEASE TAB PO ONE (08:00)
[2017-02-03 08:30] VITALS: BP 165/81; PULSE 91; RESP 16; TEMP 96.1; O2SAT 100
[2017-02-03] MEDS: PANTOPRAZOLE SOD 40 MG DELAYED RELEASE TAB PO SCH (09:12)
[2017-02-03] MEDS: IRON SUCROSE INJ 100 MG in SODIUM CHLORIDE 0.9% INJ 100 ML IV SCH (09:12)
[2017-02-03] MEDS: HEPARIN SODIUM - SQ 10,000 UNITS/ML VIAL SQ SCH (09:13)
[2017-02-03] MEDS: SODIUM CHLORIDE 0.9% FLUSH 10 ML FLUSH IV FLUSH SCH (09:21)
[2017-02-03 10:03] LABS: BANDS 14 % (0-6); EOSINOPHILS 1 % (0-4); METAMYELOCYTES 1 % (0-1); MYELOCYTES 2 % (0-0); NEUTROPHIL # MANUAL DIFF 5.2 TH/MM3 (1.8-7.7); PLATELET ESTIMATE SMEAR NORMAL (NORMAL); PLATELET MORPHOLOGY NORMAL (NORMAL); POLYS (SEG NEUTROPHILS) 70 % (16-70); SCAN/DIFF FINAL DIFF MANUAL; WBC DIFF SAMPLE 100
--- NOTE | 2017-02-03 11:58 | HHI.DCPOC ---
Discharge Care Plan Diagnosis: (1) Acute renal failure (2) Dehydration (3) Generalized weakness (4) Anemia (5) Hypertension Goals to Promote Your Health * To prevent worsening of your condition and complications * To maintain your health at the optimal level Directions to Meet Your Goals Take your medications as prescribed Follow your dietary instruction Follow activity as directed Keep your appointments as scheduled Take your immunizations and boosters as scheduled If your symptoms worsen call your PCP, if no PCP go to Urgent Care Center or Emergency Room Smoking is Dangerous to Your Health. Avoid second hand smoke Call the 24-hour hour crisis hotline for domestic abuse at Berto Hernandez MD Feb 03, 2017 11:58
[2017-02-03] MEDS ORDERED: ATENOLOL 100 MG TAB PO SCH (12:00)
--- NOTE | 2017-02-03 12:00 | HHI.DS ---
Discharge Summary Admission Date Jan 30, 2017 at 19:13 Discharge Date: Feb 03, 2017 Admitting Diagnosis acute renal failure, failure to thrive, dehydration (1) Generalized weakness ICD Code: R53.1 - Weakness Status: Acute (2) Acute renal failure ICD Code: N17.9 - Acute kidney failure, unspecified Status: Acute (3) Dehydration ICD Code: E86.0 - Dehydration Status: Acute (4) Anemia ICD Code: D64.9 - Anemia, unspecified (5) Hypertension ICD Code: I10 - Essential (primary) hypertension Procedures None Brief History - From Admission when i got up, i could not stand up, dizzy, heart beating fast , no sweating no nausea at thsi time, but have been a few days time no room spinning no vomiting no syncope, no falls, not hitting head but felt so weak, could not even walk to car, had to call 911 not this bad, but has had other similar eposides went to pcp previously, and was told to go to er if it hapens again but had nausea and diarrhea- but has had it on and off for a while- about 2 weeks diarrhea is more of one large amount, then a few small amounts no black or red color no vomiting no fever had cough a few days - white color mucus, no more cough now no abdominal pain or chest pain or shortness of breath has hx of vertigo no urine symptoms egd - a month ago- found two little ulcers there, but was not actively bleeding ; but had beginning stages of barretts . Dr Covarrubias last clonoscopy about 5yrs ago, was told not due for one now CBC/BMP: 02/03/17 0551 02/03/17 0551 Significant Findings Laboratory Tests Test 02/01/17 05:55 02/02/17 07:24 02/03/17 05:51 Red Blood Count 1.93 MIL/MM3 (4.00-5.30) 2.09 MIL/MM3 (4.00-5.30) 2.06 MIL/MM3 (4.00-5.30) Hemoglobin 7.4 GM/DL (11.6-15.3) 7.7 GM/DL (11.6-15.3) 7.6 GM/DL (11.6-15.3) Hematocrit 21.3 % (35.0-46.0) 23.3 % (35.0-46.0) 22.8 % (35.0-46.0) Mean Corpuscular Volume 110.4 FL (80.0-100.0) 111.5 FL (80.0-100.0) 110.5 FL (80.0-100.0) Mean Corpuscular Hemoglobin 38.3 PG (27.0-34.0) 36.7 PG (27.0-34.0) 36.7 PG (27.0-34.0) Monocytes (%) (Auto) 13.7 % (0.0-8.0) 14.3 % (0.0-8.0) 14.4 % (0.0-8.0) Lymphocytes # (Auto) 0.9 TH/MM3 (1.0-4.8) 0.8 TH/MM3 (1.0-4.8) Blood Urea Nitrogen 29 MG/DL (7-18) 21 MG/DL (7-18) Creatinine 2.30 MG/DL (0.50-1.00) 1.67 MG/DL (0.50-1.00) 1.13 MG/DL (0.50-1.00) Total Protein 5.0 GM/DL (6.4-8.2) 5.0 GM/DL (6.4-8.2) 5.1 GM/DL (6.4-8.2) Calcium Level 6.7 MG/DL (8.5-10.1) 7.1 MG/DL (8.5-10.1) 7.1 MG/DL (8.5-10.1) Sodium Level 135 MEQ/L (136-145) Potassium Level 3.3 MEQ/L (3.5-5.1) 3.1 MEQ/L (3.5-5.1) Carbon Dioxide Level 20.7 MEQ/L (21.0-32.0) 20.3 MEQ/L (21.0-32.0) 18.9 MEQ/L (21.0-32.0) Estimat Glomerular Filtration Rate 21 ML/MIN (>89) 31 ML/MIN (>89) 48 ML/MIN (>89) Protein Corrected Calcium 7.8 MG/DL (8.5-10.1) 8.2 MG/DL (8.5-10.1) 8.2 MG/DL (8.5-10.1) Iron Level 33 MCG/DL (50-170) Total Iron Binding Capacity 154 MCG/DL (250-450) Ferritin 563 NG/ML (8-252) Metamyelocytes 2 % (0-1) Myelocytes 1 % (0-0) 2 % (0-0) Promyelocytes 3 % (0-0) Random Glucose 70 MG/DL (74-106) Albumin 2.1 GM/DL (3.4-5.0) Alkaline Phosphatase 221 U/L (45-117) Aspartate Amino Transf (AST/SGOT) 127 U/L (15-37) Direct Bilirubin 0.6 MG/DL (0.0-0.2) Chloride Level 111 MEQ/L (98-107) 108 MEQ/L (98-107) Band Neutrophils % 14 % (0-6) Lymphocytes % 6 % (9-44) Imaging Last Impressions Carotid Artery Ultrasound 01/31/17 0000 Signed Impressions: Service Date/Time: Tuesday, January 31, 2017 08:03 - CONCLUSION: 1. Mild right carotid plaque with velocities corresponding to moderate, 50-69%%, stenosis. Suspect that this is artifactually elevated with overall imaging features most consistent with mild, less than 50%%, stenosis. 2. No hemodynamically significant left carotid stenosis. 3. Antegrade vertebral artery flow bilaterally. Jb Alvarez MD Abdomen Ultrasound 01/31/17 0000 Signed Impressions: Service Date/Time: Tuesday, January 31, 2017 08:03 - CONCLUSION: 1. Hepatic steatosis. Edwar Betts Jr., MD Abdomen/Pelvis CT 01/30/17 0000 Signed Impressions: Service Date/Time: Monday, January 30, 2017 19:35 - CONCLUSION: 1. No acute finding is identified to explain the clinical symptoms. 2. There is a 4 mm right lower lobe and 5 mm left lower lobe on pulmonary nodule. Suggest correlating with any prior imaging studies that could confirm longer-term stability. If none are available, suggest 6 month followup noncontrast chest CT. 3. Nonacute findings include severe hepatic steatosis, moderate atherosclerotic disease, and sigmoid diverticulosis. Coy Bedoya MD PE at Discharge General: No acute distress. Heart: Regular rate and rhythm. No murmur. Lungs: Clear to auscultation bilaterally. No wheezes, rales, or rhonchi. Breathing is nonlabored. Abdomen: Soft, nontender, nondistended. Extremities: No lower extremity edema. Psych: Alert and oriented. Pt update on day of discharge The patient has no complaints at this time. She wants to go home today. Denies chest pain, dyspnea, nausea, vomiting. Hospital Course The patient was admitted for further management of acute renal failure, lightheadedness. IV fluids were continued. BUN/Creatinine improved. Near syncopal episode prior to admission felt to be secondary to hypovolemia. The patient's BP increased and she was very concerned that she was not receiving her home dose of atenolol. Her BP medications were restarted and her home dose was resumed. PT recommended home health PT. The patient was felt to be stable for discharge home. She was advised to follow up with her PCP for management of her hypertension and possible adjustment of her BP medications. Pt Condition on Discharge: Stable Discharge Disposition: Disch w/ Home Health Serv Discharge Time: > 30 minutes Discharge Instructions DIET: Follow Instructions for: Heart Healthy Diet Activities you can perform: Regular-No Restrictions Follow up Referrals: PCP Follow-up - 1 Week Continued Medications: Atenolol (Atenolol) 50 Mg Tab 50 MG PO HS for Blood Pressure Management, #30 TAB 0 Refills Atenolol (Atenolol) 100 Mg Tab 100 MG PO DAILY for Blood Pressure Management, #30 TAB 0 Refills Diazepam (Diazepam) 5 Mg Tab 5 MG PO BID PRN for ANXIETY, TAB 0 Refills Omeprazole (Omeprazole) 40 Mg Cap 40 MG PO BID, #30 CAP [address] (Atelvia) 35 Mg Tabdr 35 MG PO Q7D for Manage Osteoporosis, #4 TAB 0 Refills Discontinued Medications: Losartan (Losartan) 100 Mg Tab 100 MG PO DAILY for Blood Pressure Management, #30 TAB 0 Refills Berto Hernandez MD Feb 03, 2017 12:00
== END 2017-02-03 13:40 | disposition home health service (06) | DRG 683 ==
LOC: NEPE 15:48 → NEDA 19:13 → N06B 21:32
PROVIDERS: ADMIT Family Medicine; ATTEND Family Medicine
DX: N17.9 Acute kidney failure, unspecified (principal); E87.1 Hypo-osmolality and hyponatremia; I10 Essential (primary) hypertension; E86.0 Dehydration; F32.9 Major depressive disorder, single episode, unspecified; F41.9 Anxiety disorder, unspecified; R62.7 Adult failure to thrive; K22.70 Barrett's esophagus without dysplasia; G25.81 Restless legs syndrome; M81.0 Age-related osteoporosis without current pathological fracture; D63.8 Anemia in other chronic diseases classified elsewhere; D50.9 Iron deficiency anemia, unspecified; E83.51 Hypocalcemia; E87.6 Hypokalemia
CPT/HCPCS: 74176; 76700; 76937; 80048; 80053; 80074; 80076; 81001; 82248; 82272; 82607; 82728; 82746; 83540; 83550; 83690; 84155; 84443; 85007; 85025; 85027; 85610; 93306; 93880; 96360; J0610; J1644; J1756; J7030

== ENCOUNTER 2017-02-05 15:04 | Emergency (ER) | payer MEDICARE ==
[~2017-02-05] VITALS: Ht 162.6 cm; Wt 59.0 kg
[~2017-02-05 15:04] MED LIST changes: -AMBI12.5 PO; -AMOX500C PO; +ATELTAB PO; +ATEN100T PO; +ATEN50TA PO; -CHLO5CAP3 PO; -DIAZ10 PO; +DIAZ5TAB PO; -FOLI1; -FOLI5INJ IJ; -LORTA5 PO; -NORC7.5T PO; +OMEP40CA2 PO; -THIA50CA PO; -XARE10TA OR
[2017-02-05 15:10] VITALS: BP 134/79; PULSE 96; RESP 16; TEMP 98; O2SAT 99
[2017-02-05 16:08] VITALS: O2SAT 96
--- NOTE | 2017-02-05 16:11 | PD ---
HPI Chief Complaint: Edema Time Seen by Provider: 15:52 Travel History International Travel<30 days: No Contact w/Intl Traveler<30days: No Traveled to known affect area: No History of Present Illness HPI Patient is a 66-year-old female presents emergency department for bilateral pedal edema. Patient was just released the hospital for an acute kidney injury. During that time it was noted that towards the end of her admission her blood pressure was a low which was bolused additional fluid prior to discharge. Patient states she's never had any shortness of breath no problems with lying down, no shortness of breath on exertion. Patient states she drinks only intermittently. Denies a history of liver disease. She states she feels fine except for the swelling in the legs and the mild discomfort. Denies any fevers denies any chest pain. PFSH Past Medical History Arthritis: Yes Blood Disorders: No Anxiety: Yes Depression: Yes Cancer: Yes (LEFT BREAST LUMPECTOMY W/ LYMPH NODE REMOVED ') Cardiovascular Problems: Yes (htn) Diabetes: No Gastrointestinal Disorders: No Glaucoma: No Genitourinary: Yes Hepatitis: No Hiatal Hernia: No Hypertension: No Immune Disorder: No Musculoskeletal: Yes Neurologic: Yes (RLS - CHRONIC INSOMNIA) Reproductive: No Respiratory: No Thyroid Disease: No Tetanus Vaccination: > 5 Years Influenza Vaccination: Yes ?: Not Past Surgical History Abdominal Surgery: No Cardiac Surgery: No Ear Surgery: No Endocrine Surgery: No Eye Surgery: No Genitourinary Surgery: No Gynecologic Surgery: Yes (HYSTERECTOMY X 10YRS AGO) Hysterectomy: Yes Oral Surgery: Yes (TONSILLECTOMY / A CHILD) Pacemaker: No Thoracic Surgery: No Tonsillectomy: Yes Other Surgery: Yes (RT HIP) Social History Alcohol Use: Yes (WINE DAILY) Tobacco Use: No Substance Use: No Allergies-Medications (Allergen,Severity, Reaction): Uncoded Allergies: raw egg (Allergy, Unknown, 01/30/17) Reported Meds & Prescriptions Reported Meds & Active Scripts Active Reported Atelvia (Risedronate) 35 Mg Tabdr 35 Mg PO Q7D Diazepam 5 Mg Tab 5 Mg PO BID PRN Omeprazole 40 Mg Cap 40 Mg PO BID Atenolol 100 Mg Tab 100 Mg PO DAILY Atenolol 50 Mg Tab 50 Mg PO HS Review of Systems Except as stated in HPI: all other systems reviewed are Neg Physical Exam Narrative GENERAL: Well-developed well-nourisheddistress. SKIN: Focused skin assessment warm/dry. HEAD: Atraumatic. Normocephalic. EYES: Pupils equal and round. No scleral icterus. No injection or drainage. ENT: No nasal bleeding or discharge. Mucous membranes pink and moist. NECK: Trachea midline. No JVD. CARDIOVASCULAR: Regular rate and rhythm. No murmur appreciated. RESPIRATORY: No accessory muscle use. Clear to auscultation. Breath sounds equal bilaterally. GASTROINTESTINAL: Abdomen soft, non-tender, nondistended. Hepatic and splenic margins not palpable. MUSCULOSKELETAL: No obvious deformities. No clubbing. No cyanosis. 2+ pitting edema from the knee cap distally, I do not appreciate any edema above the level at knee However she states that it does seem a little swelling. NEUROLOGICAL: Awake and alert. No obvious cranial nerve deficits. Motor grossly within normal limits. Normal speech. PSYCHIATRIC: Appropriate mood and affect; insight and judgment normal. Data Data Last Documented VS Vital Signs Date Time Temp Pulse Resp B/P (MAP) Pulse Ox O2 Delivery O2 Flow Rate FiO2 02/05/17 19:08 77 18 131/66 (87) 100 02/05/17 16:08 Room Air 02/05/17 15:10 98.0 Orders Orders Electrocardiogram (02/05/17 16:03) Ckmb (Isoenzyme) Profile (02/05/17 16:03) Complete Blood Count With Diff (02/05/17 16:03) Comprehensive Metabolic Panel (02/05/17 16:03) Prothrombin Time / Inr (Pt) (02/05/17 16:03) Act Partial Throm Time (Ptt) (02/05/17 16:03) Troponin I (02/05/17 16:03) Chest, Single Ap (02/05/17 16:03) Ecg Monitoring (02/05/17 16:03) Iv Access Insert/Monitor (02/05/17 16:03) Oximetry (02/05/17 16:03) Oxygen Administration (02/05/17 16:03) Sodium Chloride 0.9% Flush (Ns Flush) (02/05/17 16:15) Us Leg Venous Doppler Bilat (02/05/17 16:03) Labs Laboratory Tests Test 02/05/17 16:30 White Blood Count 6.5 TH/MM3 Red Blood Count 2.49 MIL/MM3 Hemoglobin 8.7 GM/DL Hematocrit 26.6 % Mean Corpuscular Volume 106.7 FL Mean Corpuscular Hemoglobin 35.0 PG Mean Corpuscular Hemoglobin Concent 32.8 % Red Cell Distribution Width 15.9 % Platelet Count 251 TH/MM3 Mean Platelet Volume 8.1 FL Neutrophils (%) (Auto) 65.3 % Lymphocytes (%) (Auto) 17.2 % Monocytes (%) (Auto) 12.9 % Eosinophils (%) (Auto) 1.5 % Basophils (%) (Auto) 3.1 % Neutrophils # (Auto) 4.3 TH/MM3 Lymphocytes # (Auto) 1.1 TH/MM3 Monocytes # (Auto) 0.8 TH/MM3 Eosinophils # (Auto) 0.1 TH/MM3 Basophils # (Auto) 0.2 TH/MM3 CBC Comment DIFF FINAL Differential Comment Prothrombin Time 11.0 SEC Prothromb Time International Ratio 1.0 RATIO Activated Partial Thromboplast Time 29.9 SEC Blood Urea Nitrogen 12 MG/DL Creatinine 0.82 MG/DL Random Glucose 84 MG/DL Total Protein 6.3 GM/DL Albumin 2.6 GM/DL Calcium Level 7.5 MG/DL Alkaline Phosphatase 291 U/L Aspartate Amino Transf (AST/SGOT) 184 U/L Alanine Aminotransferase (ALT/SGPT) 38 U/L Total Bilirubin 0.9 MG/DL Sodium Level 138 MEQ/L Potassium Level 3.0 MEQ/L Chloride Level 107 MEQ/L Carbon Dioxide Level 20.4 MEQ/L Anion Gap 11 MEQ/L Estimat Glomerular Filtration Rate 70 ML/MIN Total Creatine Kinase 63 U/L Troponin I LESS THAN 0.02 NG/ML MDM Medical Decision Making Medical Screen Exam Complete: Yes Emergency Medical Condition: Yes Differential Diagnosis Acute kidney injury, rule out peptic kidney failure, CHF seems unlikely, peripheral vascular congestion. Narrative Course Patient roomed emergency department, have reviewed her lab tests and her AST is 184 and ALT is 38. Alkaline phosphatase is 291. And her albumin is somewhat low at 2.6, troponin negative. She is mildly anemic with a hemoglobin of 8.7 which appears to be better than previous, MCV is 106.7. These labs are consistent with a chronic alcoholic however the patient adamantly declines. I discussed with her that she needs to have further workup of her liver disease and possibly even a liver biopsy but this can be done outpatient. At this time I do not see any emergent cause of her edema and recommended BAUTISTA hose as well as elevating the legs. Given her history of recent acute kidney injury and do not think that water pills are appropriate. She actually does appear quite well in no obvious distress and I think she is stable for discharge. Of note the patient did recently receive an ultrasound of her gallbladder which which was negative for gallbladder disease but did show some fatty infiltrated liver. Recent CAT scan on January 30 did show severe hepatic steatosis. The hemoglobin is improved from her last admission in AST and ALT are static. Diagnosis Primary Impression: Pedal edema Additional Instructions: Follow-up with your regular physician tomorrow by phone. Also call Dr. Covarrubias to discuss your liver tests. Avoid alcohol intake. Avoid Tylenol. Keep your legs elevated as much as possible. Use BAUTISTA how. Disposition: 01 DISCHARGE HOME Condition: Stable Dagoberto Reyez MD Feb 05, 2017 16:11
[2017-02-05] MEDS ORDERED: SODIUM CHLORIDE 0.9% FLUSH 10 ML FLUSH IVF PRN (16:15)
[2017-02-05 16:46] LABS: AUTOMATED NEUTROPHIL # 4.3 TH/MM3 (1.8-7.7); BASOPHIL # 0.2 TH/MM3 (0-0.2); BASOPHIL % 3.1 % (0.0-2.0); EOSINOPHIL # 0.1 TH/MM3 (0-0.4); EOSINOPHIL % 1.5 % (0.0-4.0); HEMATOCRIT 26.6 % (35.0-46.0); HEMO FLAGS DIFF FINAL; LYMPH % 17.2 % (9.0-44.0); LYMPHOCYTE # 1.1 TH/MM3 (1.0-4.8); MEAN CELL VOLUME 106.7 FL (80.0-100.0); MEAN CORPUSCULAR HGB CONC 32.8 % (32.0-36.0); MONO % 12.9 % (0.0-8.0); NEUT % 65.3 % (16.0-70.0); PLATELET COUNT 251 TH/MM3 (150-450); RED BLOOD COUNT 2.49 MIL/MM3 (4.00-5.30); RED CELL DISTRIBUTION WIDTH 15.9 % (11.6-17.2); WHITE BLOOD COUNT 6.5 TH/MM3 (4.0-11.0)
[2017-02-05 16:53] LABS: CHLORIDE 107 MEQ/L (98-107); SODIUM (NA) 138 MEQ/L (136-145)
--- NOTE | 2017-02-05 16:55 | RADRPT ---
EXAM DATE/TIME: 02/05/2017 16:07 [facility] COMPARISON: No previous studies available for comparison. INDICATIONS : Chest pain. MEDICAL HISTORY : Hypertension. Carcinoma, breast. SURGICAL HISTORY : Lumpectomy, left. ENCOUNTER: Initial ACUITY: 1 week PAIN SCORE: 3/10 LOCATION: Bilateral chest FINDINGS: A single view of the chest demonstrates the lungs to be symmetrically aerated without evidence of mas s, infiltrate or effusion. The cardiomediastinal contours are unremarkable. Osseous structures are intact. CONCLUSION: Normal examination. Edwar Betts Jr., MD on February 05, 2017 at 16:49 Board Certified Radiologist. This report was verified electronically.
[2017-02-05 16:56] LABS: ANION GAP 11 MEQ/L (5-15); APTT (PATIENT) 29.9 SEC (24.3-30.1); BICARBONATE 20.4 MEQ/L (21.0-32.0)
[2017-02-05 16:57] LABS: BLOOD UREA NITROGEN 12 MG/DL (7-18)
[2017-02-05 16:59] LABS: ALT (GPT) 38 U/L (10-53)
[2017-02-05 17:00] LABS: AST (GOT) 184 U/L (15-37); GLOMERULAR FILTRATION RATE 70 ML/MIN (>89)
[2017-02-05 17:01] LABS: TOTAL BILIRUBIN ADULT 0.9 MG/DL (0.2-1.0)
[2017-02-05 17:02] LABS: ALKALINE PHOSPHATASE 291 U/L (45-117)
[2017-02-05 17:06] LABS: CREATINE KINASE 63 U/L (26-192)
--- NOTE | 2017-02-05 17:44 | RADRPT ---
EXAM DATE/TIME: 02/05/2017 17:00 [facility] COMPARISON: No previous studies available for comparison. INDICATIONS : Bilateral leg swelling. MEDICAL HISTORY : General weakness, near syncope. Liver and kidney failure. SURGICAL HISTORY : Tonsillectomy. Right thumb surgery. Hysterectomy. Left breast lumpectomy. ENCOUNTER: Subsequent ACUITY: 4 - 6 days PAIN SCORE: 2/10 LOCATION: Bilateral legs. TECHNIQUE: Venous ultrasound of the left and right leg was performed from the inguinal ligament to the proximal calf. Real-time, color Doppler and spectral tracing, compression and augmentation techniques were us ed. FINDINGS: RIGHT LEG: There is normal compressibility of the deep venous system from the inguinal region to the proximal ca lf. No echogenic clot is seen in the lumen of the common femoral, femoral, popliteal, and posterior tibial veins. There is a normal response of the venous system to proximal and distal augmentation an d respiration. Small 3 cm popliteal cyst is noted. LEFT LEG: There is normal compressibility of the deep venous system from the inguinal region to the proximal ca lf. No echogenic clot is seen in the lumen of the common femoral, femoral, popliteal, and posterior tibial veins. There is a normal response of the venous system to proximal and distal augmentation an d respiration. CONCLUSION: Negative for deep venous thrombosis. Yonathan Fiore MD FACR on February 05, 2017 at 17:42 Board Certified Radiologist. This report was verified electronically.
[2017-02-05 19:08] VITALS: BP 131/66
--- NOTE | 2017-02-06 09:15 | EKG ---
Date Performed: 02/05/2017 Time Performed: 16:20:34 PTAGE: 66 years EKG: Sinus rhythm LOW QRS VOLTAGE IN PRECORDIAL LEADS BORDERLINE ECG PREVIOUS TRACING : 06/11/2012 02.22 Compared to prior tracing no significant change DOCTOR: Yobani Mendieta Interpretating Date/Time 02/06/2017 09:13:10
== END 2017-02-05 19:10 | disposition home or self-care (01) ==
LOC: PHED 15:04
DX: R60.0 Localized edema (principal); N17.9 Acute kidney failure, unspecified; I10 Essential (primary) hypertension; R07.9 Chest pain, unspecified
CPT/HCPCS: 71010; 80053; 82550; 84484; 85025; 85610; 85730; 93005; 93970; 99285

== ENCOUNTER 2017-08-27 03:11 | Emergency (ER) | payer MEDICARE ==
[~2017-08-27] VITALS: Ht 162.6 cm; Wt 53.2 kg
[2017-08-27 03:13] VITALS: BP 227/93; PULSE 72; RESP 18; TEMP 98.7; O2SAT 99
--- NOTE | 2017-08-27 03:17 | PD ---
HPI Chief Complaint: Fall Time Seen by Provider: 03:16 Travel History International Travel<30 days: No Contact w/Intl Traveler<30days: No Traveled to known affect area: No History of Present Illness HPI 66-year-old female was brought to the emergency room by EMS for fall, head injury and some confusion status post head injury. Patient was asleep when she tried to get out of her bed after she woke up and fell backwards and hit her head. Her noticed that she was acting a little confused after that. He called 911. EMS noticed her pupils to be unequal and brought her in emergently. After arriving patient has been GCS of 15. She is not complaining of any pain. Vital signs were stable. Patient is not on any blood thinners. Patient was brought in boarded and collared [facility] Past Medical History Narrative Medical List of her past medical, surgical, social and family history reviewed from the nursing note. Arthritis: Yes Blood Disorders: No Anxiety: Yes Depression: Yes Cancer: Yes (LEFT BREAST LUMPECTOMY W/ LYMPH NODE REMOVED ') Cardiovascular Problems: Yes (htn) Diabetes: No Gastrointestinal Disorders: No Glaucoma: No Genitourinary: Yes Hepatitis: No Hiatal Hernia: No Hypertension: No Immune Disorder: No Musculoskeletal: Yes Neurologic: Yes (RLS - CHRONIC INSOMNIA) Reproductive: No Respiratory: No Thyroid Disease: No Past Surgical History Abdominal Surgery: No Cardiac Surgery: No Ear Surgery: No Endocrine Surgery: No Eye Surgery: No Genitourinary Surgery: No Gynecologic Surgery: Yes (HYSTERECTOMY X 10YRS AGO) Hysterectomy: Yes Oral Surgery: Yes (TONSILLECTOMY / A CHILD) Pacemaker: No Thoracic Surgery: No Tonsillectomy: Yes Other Surgery: Yes (RT HIP) Social History Alcohol Use: Yes (WINE DAILY) Tobacco Use: No Substance Use: No Allergies-Medications (Allergen,Severity, Reaction): Uncoded Allergies: raw egg (Allergy, Unknown, 01/30/17) Comments List of her allergies reviewed from the nursing Reported Meds & Prescriptions Reported Meds & Active Scripts Active Macrobid (Nitrofurantoin Monoh/Nitrofur Macro) 100 Mg Cap 100 Mg PO BID 7 Days Reported Atelvia (Risedronate) 35 Mg Tabdr 35 Mg PO Q7D Diazepam 5 Mg Tab 5 Mg PO BID PRN Omeprazole 40 Mg Cap 40 Mg PO BID Atenolol 100 Mg Tab 100 Mg PO DAILY Atenolol 50 Mg Tab 50 Mg PO HS Narrative Medication List of her home medications reviewed from the nursing note. Review of Systems Except as stated in HPI: all other systems reviewed are Neg Physical Exam Narrative GENERAL: Awake, alert, boarded and collared SKIN: Focused skin assessment warm/dry. HEAD: Atraumatic. Normocephalic. EYES: Pupils equal and round. No scleral icterus. No injection or drainage. ENT: No nasal bleeding or discharge. Mucous membranes pink and moist. NECK: Trachea midline. No JVD. CARDIOVASCULAR: Regular rate and rhythm. No murmur appreciated. RESPIRATORY: No accessory muscle use. Clear to auscultation. Breath sounds equal bilaterally. GASTROINTESTINAL: Abdomen soft, non-tender, nondistended. Hepatic and splenic margins not palpable. MUSCULOSKELETAL: No obvious deformities. No clubbing. No cyanosis. No edema. Rheumatoid arthritis NEUROLOGICAL: Awake and alert. No obvious cranial nerve deficits. Motor grossly within normal limits. Normal speech. PSYCHIATRIC: Appropriate mood and affect; insight and judgment normal. Data Data Last Documented VS Orders Orders Electrocardiogram (08/27/17 03:17) Basic Metabolic Panel (Bmp) (08/27/17 03:17) Complete Blood Count With Diff (08/27/17 03:17) Creatine Kinase (Cpk) (08/27/17 03:17) Prothrombin Time / Inr (Pt) (08/27/17 03:17) Troponin I (08/27/17 03:17) Urinalysis - C+S If Indicated (08/27/17 03:17) Chest, Single Ap (08/27/17 03:17) Ct Brain W/O Iv Contrast(Rout) (08/27/17 03:17) Blood Glucose (08/27/17 03:17) Ecg Monitoring (08/27/17 03:17) Iv Access Insert/Monitor (08/27/17 03:17) Oximetry (08/27/17 03:17) Sodium Chloride 0.9% Flush (Ns Flush) (08/27/17 03:30) Urine Culture (08/27/17 04:45) Nitrofurantoin Monohyd Macrocr (Macrobid (08/27/17 05:45) Ed Discharge Order (08/27/17 06:15) Labs Laboratory Tests Test 08/27/17 01:03 08/27/17 04:45 08/27/17 05:48 Prothrombin Time 11.5 SEC Prothromb Time International Ratio 1.1 RATIO Blood Urea Nitrogen 10 MG/DL Creatinine 0.51 MG/DL Random Glucose 75 MG/DL Calcium Level 8.2 MG/DL Sodium Level 139 MEQ/L Potassium Level 4.1 MEQ/L Chloride Level 104 MEQ/L Carbon Dioxide Level 20.7 MEQ/L Anion Gap 14 MEQ/L Estimat Glomerular Filtration Rate 121 ML/MIN Total Creatine Kinase 67 U/L Troponin I LESS THAN 0.02 NG/ML Urine Color YELLOW Urine Turbidity CLEAR Urine pH 6.0 Urine Specific [place] 1.009 Urine Protein NEG mg/dL Urine Glucose (UA) NEG mg/dL Urine Ketones NEG mg/dL Urine Occult Blood NEG Urine Nitrite POS Urine Bilirubin NEG Urine Urobilinogen LESS THAN 2.0 MG/DL Urine Leukocyte Esterase LARGE Urine RBC 1 /hpf Urine WBC 6 /hpf Urine Squamous Epithelial Cells 4 /hpf Urine Transitional Epithelial Cells <1 /hpf Urine Renal Epithelial Cells <1 /hpf Urine Bacteria RARE /hpf Urine Mucus FEW /lpf Microscopic Urinalysis Comment CATH-CULTURE IND White Blood Count 5.4 TH/MM3 Red Blood Count 3.26 MIL/MM3 Hemoglobin 11.5 GM/DL Hematocrit 33.8 % Mean Corpuscular Volume 103.6 FL Mean Corpuscular Hemoglobin 35.4 PG Mean Corpuscular Hemoglobin Concent 34.2 % Red Cell Distribution Width 13.9 % Platelet Count 189 TH/MM3 Mean Platelet Volume 7.3 FL Neutrophils (%) (Auto) 49.4 % Lymphocytes (%) (Auto) 30.5 % Monocytes (%) (Auto) 13.9 % Eosinophils (%) (Auto) 5.4 % Basophils (%) (Auto) 0.8 % Neutrophils # (Auto) 2.7 TH/MM3 Lymphocytes # (Auto) 1.7 TH/MM3 Monocytes # (Auto) 0.8 TH/MM3 Eosinophils # (Auto) 0.3 TH/MM3 Basophils # (Auto) 0.0 TH/MM3 CBC Comment DIFF FINAL Differential Comment MDM Medical Decision Making Medical Screen Exam Complete: Yes Emergency Medical Condition: Yes Medical Record Reviewed: Yes Interpretation(s) Twelve-lead EKG was reviewed by me. Normal sinus rhythm, normal axis, nonspecific ST-T wave changes. Heart rate of 68 bpm. Differential Diagnosis Intracranial bleed, concussion, skull fracture Narrative Course 6:08 AM blood test results are back and within acceptable limits. UA is suggestive of UTI. CT scan of her head was negative for intracranial bleed or skull fracture. I have asked the nurse to ambulate the patient. If she does okay she will be discharged home. I have given her dose of Macrobid for the UTI. 6:15 AM patient ambulated well. I discussed with her and her test results. I am comfortable discharging her home. Procedures EKG Prior to Arrival: No Diagnosis Primary Impression: Head injury Qualified Codes: S09.90XA - Unspecified injury of head, initial encounter Additional Impressions: Concussion Qualified Codes: S06.0X1A - Concussion with loss of consciousness of 30 minutes or less, initial encounter UTI (urinary tract infection) Qualified Codes: N39.0 - Urinary tract infection, site not specified Additional Instructions: Return to the ER if condition worsens or any other new concerns. Apply ice pack on the back of the head will you have the swelling to minimize the swelling. Take Tylenol for headache. Headache, dizziness, nausea could be all part of the postconcussive syndrome. Follow-up with your primary care if symptoms worsen. Med/Other Pt SpecificInfo: Prescription(s) given Scripts Nitrofurantoin Monohydrate Macrocrystals (Macrobid) 100 Mg Cap 100 MG PO BID for Infection for 7 Days, #14 CAP 0 Refills Prov: Livier Meek MD 08/27/17 Disposition: 01 DISCHARGE HOME Condition: Stable Livier Meek MD Aug 27, 2017 03:17
[2017-08-27] MEDS ORDERED: SODIUM CHLORIDE 0.9% FLUSH 10 ML FLUSH IV FLUSH PRN (03:30)
[2017-08-27 03:42] VITALS: BP 156/80; PULSE 68; O2SAT 100
--- NOTE | 2017-08-27 03:46 | RADRPT ---
EXAM DATE/TIME: 08/27/2017 03:30 [facility] COMPARISON: No previous studies available for comparison. INDICATIONS : Altered mental status; possible fall. RADIATION DOSE: 56.35 CTDIvol (mGy) MEDICAL HISTORY : None SURGICAL HISTORY : Hysterectomy. Tonsillectomy.Left breast lumpectomy ENCOUNTER: Initial ACUITY: 1 day PAIN SCALE: Non-responsive LOCATION: cranial TECHNIQUE: Multiple contiguous axial images were obtained of the head. Using automated exposure control and adj ustment of the mA and/or kV according to patient size, radiation dose was kept as low as reasonably a chievable to obtain optimal diagnostic quality images. DICOM format image data is available electro nically for review and comparison. FINDINGS: CEREBRUM: The ventricles, sulci, and basal cisterns are prominent, characteristic of moderate severity central and cortical atrophy. No evidence of midline shift, mass lesion, hemorrhage or acute infarction. No extra-axial fluid collections are seen. POSTERIOR FOSSA: The cerebellum and brainstem are intact. The 4th ventricle is midline. The cerebellopontine angle i s unremarkable. EXTRACRANIAL: The visualized portion of the orbits is intact. SKULL: Focal scalp hematoma left parasagittal high convexity occipital region. The calvaria is intact. No evidence of skull fracture. CONCLUSION: 1. Moderate central and cortical atrophy. No acute findings. 2. Left parasagittal occipital scalp hematoma without evidence of skull fracture. Edwar Blackman MD on August 27, 2017 at 3:43 Board Certified Radiologist. This report was verified electronically.
--- NOTE | 2017-08-27 03:50 | RADRPT ---
EXAM DATE/TIME: 08/27/2017 03:38 [facility] COMPARISON: CHEST SINGLE AP, February 05, 2017, 16:07. INDICATIONS : Short of breath. MEDICAL HISTORY : Hypertension. Carcinoma, breast. SURGICAL HISTORY : Lumpectomy, left. ENCOUNTER: Subsequent ACUITY: 1 week PAIN SCORE: 0/10 LOCATION: Bilateral chest FINDINGS: A single view of the chest demonstrates the lungs to be symmetrically aerated without evidence of mas s, infiltrate or effusion. The cardiomediastinal contours are unremarkable. Chronic deformity of th e left shoulder. CONCLUSION: The lungs are clear. Edwar Blackman MD on August 27, 2017 at 3:48 Board Certified Radiologist. This report was verified electronically.
[2017-08-27 04:08] VITALS: BP 132/68; PULSE 71; RESP 20; O2SAT 99
[2017-08-27 04:35] LABS: INTERNATIONAL NORMALIZED RATIO 1.1 RATIO; PROTHROMBIN TIME - PATIENT 11.5 SEC (9.8-11.6)
[2017-08-27 05:18] LABS: BICARBONATE 20.7 MEQ/L (21.0-32.0); BLOOD UREA NITROGEN 10 MG/DL (7-18); CALCIUM 8.2 MG/DL (8.5-10.1); CHLORIDE 104 MEQ/L (98-107); CREATININE 0.51 MG/DL (0.50-1.00); GLOMERULAR FILTRATION RATE 121 ML/MIN (>89); GLUCOSE,RANDOM 75 MG/DL (74-106); SODIUM (NA) 139 MEQ/L (136-145); TROPONIN I LESS THAN 0.02 NG/ML (0.02-0.05)
[2017-08-27 05:22] LABS: BACTERIA, URINE RARE /hpf; BILIRUBIN, URINE NEG (NEG); BLOOD, URINE NEG (NEG); GLUCOSE,URINE NEG (NEG); KETONE, URINE NEG (NEG); MUCUS URINE FEW /lpf (OCC); NITRITE,URINE POS (NEG); RENAL EPITHELIAL CELLS <1 /hpf; SQUAMOUS EPITHELIAL CELL URINE 4 /hpf (0-5); TRANSITIONAL EPI CELLS, URINE <1 /hpf; URINE COLOR YELLOW (YELLW/STRAW); URINE LEUKOCYTE ESTERASE LARGE (NEG)
[2017-08-27] MEDS ORDERED: NITROFURANTOIN MONOHYD MACROCR 100 MG CAP PO ONE (05:45)
[2017-08-27 05:59] LABS: AUTOMATED NEUTROPHIL # 2.7 TH/MM3 (1.8-7.7); BASOPHIL % 0.8 % (0.0-2.0); EOSINOPHIL # 0.3 TH/MM3 (0-0.4); EOSINOPHIL % 5.4 % (0.0-4.0); HEMATOCRIT 33.8 % (35.0-46.0); HEMOGLOBIN 11.5 GM/DL (11.6-15.3); LYMPH % 30.5 % (9.0-44.0); LYMPHOCYTE # 1.7 TH/MM3 (1.0-4.8); MEAN CELL VOLUME 103.6 FL (80.0-100.0); MEAN CORPUSCULAR HEMOGLOBIN 35.4 PG (27.0-34.0); MEAN CORPUSCULAR HGB CONC 34.2 % (32.0-36.0); MEAN PLATELET VOLUME 7.3 FL (7.0-11.0); MONO % 13.9 % (0.0-8.0); MONOCYTE # 0.8 TH/MM3 (0-0.9); NEUT % 49.4 % (16.0-70.0); PLATELET COUNT 189 TH/MM3 (150-450); RED BLOOD COUNT 3.26 MIL/MM3 (4.00-5.30); RED CELL DISTRIBUTION WIDTH 13.9 % (11.6-17.2); WHITE BLOOD COUNT 5.4 TH/MM3 (4.0-11.0)
[2017-08-27] MEDS ORDERED: MACR100C2 PO (06:17)
--- NOTE | 2017-08-27 11:54 | EKG ---
Date Performed: 08/27/2017 Time Performed: 03:27:09 PTAGE: 66 years EKG: Sinus rhythm NORMAL ECG PREVIOUS TRACING : 02/05/2017 16.20 Since the previous tracing, no significant change noted DOCTOR: Dolores Ayala Interpretating Date/Time 08/27/2017 11:53:01
== END 2017-08-27 06:35 | disposition home or self-care (01) ==
LOC: NEPC 03:11
DX: S06.0X1A Concussion with loss of consciousness of 30 minutes or less, initial encounter (principal); W19.XXXA Unspecified fall, initial encounter; N39.0 Urinary tract infection, site not specified; B95.7 Other staphylococcus as the cause of diseases classified elsewhere; M19.90 Unspecified osteoarthritis, unspecified site; F41.9 Anxiety disorder, unspecified; F32.9 Major depressive disorder, single episode, unspecified; I10 Essential (primary) hypertension; G25.81 Restless legs syndrome
CPT/HCPCS: 70450; 71045; 80048; 81001; 82550; 84484; 85025; 85610; 86403; 87077; 87086; 87186; 93005

== ENCOUNTER 2017-09-19 20:40 | Emergency (ER) | payer MEDICARE ==
[~2017-09-19] VITALS: Ht 162.6 cm; Wt 57.0 kg
[~2017-09-19 20:40] MED LIST changes: +MACR100C2 PO
[2017-09-19 20:47] VITALS: BP 117/69; PULSE 77; RESP 15; TEMP 97.9; O2SAT 95
[2017-09-19] MEDS ORDERED: CLON0.1T PO (20:58)
[2017-09-19] MEDS ORDERED: CITA20TA4 PO (20:58)
[2017-09-19] MEDS ORDERED: ZOLP10TA3 PO (20:58)
--- NOTE | 2017-09-19 21:37 | PD ---
HPI Chief Complaint: Fall Time Seen by Provider: 21:15 Travel History International Travel<30 days: No Contact w/Intl Traveler<30days: No Traveled to known affect area: No History of Present Illness HPI This patient gets periodic attacks of vertigo. She got one today and had a room spinning dizziness. This caused her to lose her balance and she fell and landed on her knees. She lightly grazed her right cheek but does not have any head or facial pain or neck pain. No LOC. Her chief complaint is right knee pain. She cannot put weight on it. She landed on the left knee also but does not have pain there. She was supposed to be using a walker but was not at the time. No alleviating factors. Duration is 2 hours. Severity is moderate. Is worse with weightbearing. PFSH Past Medical History Arthritis: Yes Blood Disorders: No Anxiety: Yes Depression: Yes Cancer: Yes (LEFT BREAST LUMPECTOMY W/ LYMPH NODE REMOVED ') Cardiovascular Problems: Yes (htn) Diabetes: No Gastrointestinal Disorders: No Glaucoma: No Genitourinary: Yes Hepatitis: No Hiatal Hernia: No Hypertension: Yes Immune Disorder: No Musculoskeletal: Yes Neurologic: Yes (RLS - CHRONIC INSOMNIA) Reproductive: No Respiratory: No Thyroid Disease: No Influenza Vaccination: No ?: Not Menopausal: Yes Past Surgical History Abdominal Surgery: No Cardiac Surgery: No Ear Surgery: No Endocrine Surgery: No Eye Surgery: Yes (rt eye cataract sx) Genitourinary Surgery: No Gynecologic Surgery: Yes (HYSTERECTOMY X 10YRS AGO, LEFT LUMPECTOMY WIHT LYMPHNODE REMOVAL) Hysterectomy: Yes Oral Surgery: Yes (TONSILLECTOMY / A CHILD) Pacemaker: No Thoracic Surgery: No Tonsillectomy: Yes Other Surgery: Yes (RIGHT TOTAL HIP) Social History Alcohol Use: Yes (WINE DAILY) Tobacco Use: No Substance Use: No Allergies-Medications (Allergen,Severity, Reaction): Uncoded Allergies: raw egg (Allergy, Unknown, 01/30/17) Reported Meds & Prescriptions Reported Meds & Active Scripts Active Reported Clonidine (Clonidine HCl) 0.1 Mg Tab 0.1 Mg PO DAILY Zolpidem (Zolpidem Tartrate) 10 Mg Tab 10 Mg PO HS PRN Citalopram (Citalopram Hydrobromide) 20 Mg Tab 20 Mg PO DAILY Atelvia (Risedronate) 35 Mg Tabdr 35 Mg PO Q7D Diazepam 5 Mg Tab 5 Mg PO BID PRN Atenolol 100 Mg Tab 100 Mg PO DAILY Atenolol 50 Mg Tab 50 Mg PO HS Review of Systems General / Constitutional: No: Fever Eyes: No: Visual changes HENT: No: Headaches Cardiovascular: No: Chest Pain or Discomfort Respiratory: No: Shortness of Breath Gastrointestinal: No: Abdominal Pain Genitourinary: No: Dysuria Musculoskeletal: Positive: Arthralgias, Limited ROM, Pain Skin: No Rash Neurologic: No: Weakness Psychiatric: No: Depression Endocrine: No: Polydipsia Hematologic/Lymphatic: No: Easy Bruising Physical Exam Narrative GENERAL: Well-nourished, well-developed patient in no apparent distress. SKIN: Focused skin assessment reveals no rash and nodules. Skin is Warm and dry. HEAD: Slight ecchymosis to the mid right cheek without tenderness. Normocephalic. EYES: Pupils equal and round. No scleral icterus. No injection or drainage. ENT: No nasal bleeding or discharge. Mucous membranes pink and moist. NECK: Trachea midline. No JVD. No midline tenderness CARDIOVASCULAR: Regular rate and rhythm. No murmur appreciated. RESPIRATORY: No accessory muscle use. Clear to auscultation. Breath sounds equal bilaterally. GASTROINTESTINAL: Abdomen soft, non-tender, nondistended. Hepatic and splenic margins not palpable. MUSCULOSKELETAL: There is skin tear and abrasion on the right patella with tenderness. There is a bit of knee effusion there. There is abrasion to the left knee but no tenderness. No clubbing. No cyanosis. No edema. NEUROLOGICAL: Awake and alert. No obvious cranial nerve deficits. Motor grossly within normal limits. Normal speech. PSYCHIATRIC: Appropriate mood and affect; insight and judgment normal. Data Data Last Documented VS Vital Signs Date Time Temp Pulse Resp B/P (MAP) Pulse Ox O2 Delivery O2 Flow Rate FiO2 09/19/17 20:47 97.9 77 15 117/69 (85) 95 Orders Orders Knee, Complete (4vws) (09/19/17 ) Ed Discharge Order (09/20/17 00:04) MDM Medical Decision Making Medical Screen Exam Complete: Yes Emergency Medical Condition: Yes Medical Record Reviewed: Yes Differential Diagnosis Knee fracture, knee dislocation, contusion Narrative Course I have reviewed the patient's electronic medical record. She had a head injury last month with negative CT I reviewed her right knee x-rays. There is no evidence of fracture or dislocation Supportive care discussed. I am recommending wheelchair use. will get one tomorrow. She cannot use the walker given the injury. I wrote her a few pain pills She has an orthopedist she will call tomorrow for follow-up Diagnosis Primary Impression: Soft tissue injury of right knee Qualified Codes: S89.91XA - Unspecified injury of right lower leg, initial encounter Additional Instructions: The patient was warned about potential sedation for the medications they will receive on prescription. Ice and elevate right knee Follow-up with primary care or orthopedist Med/Other Pt SpecificInfo: Prescription(s) given Disposition: 01 DISCHARGE HOME Condition: Stable Berto Esposito MD Sep 19, 2017 21:37
--- NOTE | 2017-09-19 22:11 | RADRPT ---
EXAM DATE/TIME: 09/19/2017 21:45 [facility] COMPARISON: No previous studies available for comparison. INDICATIONS : Right knee pain post fall today MEDICAL HISTORY : None. SURGICAL HISTORY : None. ENCOUNTER: Initial ACUITY: 1 day PAIN SCORE: 7/10 LOCATION: Right proximal tibia FINDINGS: Four view examination of the right knee demonstrates no evidence of fracture or dislocation. Bony mi neralization is normal. The articular surfaces are intact. The suprapatellar soft tissues have a no rmal configuration. CONCLUSION: Normal examination for a patient of this age. Bladimir Leung MD on September 19, 2017 at 22:08 Board Certified Radiologist. This report was verified electronically.
[2017-09-20] MEDS ORDERED: TRAM50TA PO (00:08)
== END 2017-09-20 00:23 | disposition home or self-care (01) ==
LOC: NEPD 20:40
DX: S89.91XA Unspecified injury of right lower leg, initial encounter (principal); S00.83XA Contusion of other part of head, initial encounter; S80.212A Abrasion, left knee, initial encounter; I10 Essential (primary) hypertension; G25.81 Restless legs syndrome; F41.9 Anxiety disorder, unspecified; F32.9 Major depressive disorder, single episode, unspecified; W19.XXXA Unspecified fall, initial encounter; Z79.899 Other long term (current) drug therapy
CPT/HCPCS: 73564; 99283

== ENCOUNTER 2018-02-17 20:54 | Inpatient (IN) ==
--- NOTE | 2018-02-17 21:50 | ED ---
HPI General Chief Complaint: Abdominal Pain Stated Complaint: ABD Pain Time Seen by Provider: 02/17/18 21:40 History of Present Illness HPI narrative: Patient is a 67-year-old female presents the emergency department with abdominal pain. She states that she was diagnosed with cirrhosis of the liver approximately week and a half ago. She is a longtime drinker however stopped drinking several months ago. Her pain is nonlocalizing. She states it is kind of a dull pressure type pain throughout her entire abdomen. It started last week she was seen at the hospital but it has worsened since then. She denies fever. She has no nausea or vomiting, no constipation or diarrhea. Related Data Home Medications Medication Instructions Recorded Confirmed atenolol 50 mg PO DAILY 02/12/18 02/17/18 clonidine HCl 0.1 mg PO TID PRN 02/12/18 02/17/18 diazepam 5 mg PO TID 02/12/18 02/17/18 meclizine 25 mg PO DAILY PRN 02/12/18 02/17/18 Previous Rx's Medication Instructions Recorded nitrofurantoin monohyd/m-cryst 100 mg PO BID 7 Days #14 cap 02/12/18 [Macrobid] Allergies Allergy/AdvReac Type Severity Reaction Status Date / Time raw egg Allergy Unknown Hives Uncoded 02/12/18 15:20 [facility] Medical History Medical History Cirrhosis (Acute) H/O: hysterectomy (Acute) HTN (hypertension) (Acute) Hip fx (Acute) UTI (urinary tract infection) (Acute) Vertigo (Acute) Social History Social History Substance History: No History of Abuse Second Hand Smoke Exposure: No Smoking Status: Never smoker How Often Do You Have a Drink Containing Alcohol: Never Recent Travel in [facility] within the Last 8 Weeks: No Recent Out of Country Travel within the Last 8 Weeks: No Immunization History Tetanus Immunization: Unable to Assess Exam Narrative Exam Narrative: GENERAL: 67-year-old female in mild distress secondary to abdominal pain SKIN: Focused skin assessment warm/dry. Jaundice HEAD: Atraumatic. Normocephalic. EYES: Pupils equal and round. No scleral icterus. No injection or drainage. ENT: No nasal bleeding or discharge. Mucous membranes pink and moist. NECK: Trachea midline. CARDIOVASCULAR: Regular rate and rhythm. No murmur appreciated. RESPIRATORY: No accessory muscle use. Clear to auscultation. Breath sounds equal bilaterally. GASTROINTESTINAL: Abdomen soft, non-tender, nondistended. Hepatic and splenic margins not palpable. MUSCULOSKELETAL: No obvious deformities. No clubbing. No cyanosis. No edema. NEUROLOGICAL: Awake and alert. No obvious cranial nerve deficits. Motor grossly within normal limits. Normal speech. PSYCHIATRIC: Appropriate mood and affect; insight and judgment normal. Course Initial Documented Vital Signs Temperature 98 F 02/17/18 21:19 Pulse Rate 111 H 02/17/18 21:19 Respiratory Rate 18 02/17/18 21:19 Blood Pressure 159/91 H 02/17/18 21:19 Pulse Oximetry 95 02/17/18 21:19 Last Documented Vital Signs Temperature 98 F 02/17/18 21:19 Pulse Rate 111 H 02/17/18 21:19 Respiratory Rate 18 02/17/18 21:19 Blood Pressure 159/91 H 02/17/18 21:19 Pulse Oximetry 95 02/17/18 21:19 Medical Decision Making MDM Narrative Medical decision making narrative: Patient has an elevated white count with shift which is concerning for SBP. Patient is admitted to [facility] for further evaluation and treatment. Medical Screen Exam Complete: Yes Emergency Medical Condition: Yes Lab Data Result diagrams: 02/17/18 22:02 02/17/18 22:25 Lab Results 02/17/18 02/17/18 02/17/18 Range/Units 22:02 22:02 22:02 WBC 11.3 H (4.0-11.0) th/mm3 RBC 3.32 L (4.00-5.30) mil/mm3 Hgb 10.9 L (11.6-15.3) gm/dL Hct 31.5 L (35.0-46.0) % MCV 94.8 (80.0-100.0) fL MCH 32.7 (27.0-34.0) pg MCHC 34.5 (32.0-36.0) % RDW 16.2 (11.6-17.2) % Plt Count 403 D (150-450) th/mm3 MPV 8.5 (7.0-11.0) fL Prelim Diff (Auto) Slide review pending Neut % (Auto) 82.5 H (16.0-70.0) % Lymph % (Auto) 5.9 L (9.0-44.0) % Baker % (Auto) 6.6 (0.0-8.0) % Eos % (Auto) 4.2 H (0.0-4.0) % Baso % (Auto) 0.8 (0.0-2.0) % Neut # (Auto) 9.3 H (1.8-7.7) th/mm3 Lymph # (Auto) 0.7 L (1.0-4.8) th/mm3 Baker # (Auto) 0.7 (0.0-0.9) th/mm3 Eos # (Auto) 0.5 H (0.0-0.4) th/mm3 Baso # (Auto) 0.1 (0.0-0.2) th/mm3 WBC Differential . Diff Scan Auto diff confirmed Differential Comment . Platelet Estimate Normal (Normal) Platelet Morphology Normal (Normal) PT 13.0 H (9.8-11.6) sec INR 1.3 Ratio APTT 26.4 (24.3-30.1) sec Sodium (136-145) meq/L Potassium (3.5-5.1) meq/L Chloride (98-107) meq/L Carbon Dioxide (21.0-32.0) meq/L Anion Gap (5-15) meq/L BUN (7-18) mg/dL Creatinine (0.50-1.00) mg/dL Estimated GFR (>89) mL/min Random Glucose (74-106) mg/dL Calcium (8.5-10.1) mg/dL Total Bilirubin (0.2-1.0) mg/dL AST (15-37) U/L ALT (10-53) U/L Alkaline Phosphatase (45-117) U/L Ammonia Less than 10 L (11-32) mcmol/L Total Protein (6.4-8.2) g/dL Albumin (3.4-5.0) g/dL Lipase (73-393) U/L 02/17/18 Range/Units 22:25 WBC (4.0-11.0) th/mm3 RBC (4.00-5.30) mil/mm3 Hgb (11.6-15.3) gm/dL Hct (35.0-46.0) % MCV (80.0-100.0) fL MCH (27.0-34.0) pg MCHC (32.0-36.0) % RDW (11.6-17.2) % Plt Count (150-450) th/mm3 MPV (7.0-11.0) fL Prelim Diff (Auto) Neut % (Auto) (16.0-70.0) % Lymph % (Auto) (9.0-44.0) % Baker % (Auto) (0.0-8.0) % Eos % (Auto) (0.0-4.0) % Baso % (Auto) (0.0-2.0) % Neut # (Auto) (1.8-7.7) th/mm3 Lymph # (Auto) (1.0-4.8) th/mm3 Baker # (Auto) (0.0-0.9) th/mm3 Eos # (Auto) (0.0-0.4) th/mm3 Baso # (Auto) (0.0-0.2) th/mm3 WBC Differential Diff Scan Differential Comment Platelet Estimate (Normal) Platelet Morphology (Normal) PT (9.8-11.6) sec INR Ratio APTT (24.3-30.1) sec Sodium 127 L (136-145) meq/L Potassium 3.5 (3.5-5.1) meq/L Chloride 89 L (98-107) meq/L Carbon Dioxide 28.0 (21.0-32.0) meq/L Anion Gap 10 (5-15) meq/L BUN 9 (7-18) mg/dL Creatinine 0.66 (0.50-1.00) mg/dL Estimated GFR Greater than 89 (>89) mL/min Random Glucose 91 (74-106) mg/dL Calcium 8.3 L (8.5-10.1) mg/dL Total Bilirubin 4.2 H (0.2-1.0) mg/dL AST 113 H (15-37) U/L ALT 17 (10-53) U/L Alkaline Phosphatase 245 H (45-117) U/L Ammonia (11-32) mcmol/L Total Protein 5.8 L (6.4-8.2) g/dL Albumin 2.3 L (3.4-5.0) g/dL Lipase 174 (73-393) U/L Imaging Data Radiologist's impression: Chest X-Ray 02/17/18 21:43 CONCLUSION: No acute cardiopulmonary disease. There is no evidence of pneumonia. Discharge Plan Discharge Disposition Patient Disposition: 30 Still Patient Discharge Condition Condition: Stable Discharge Details Diagnosis: SBP (spontaneous bacterial peritonitis) Physicians Team ED Provider: Nimco Sher Primary Care Provider: UNKNOWN, Attending Provider: Halie Link Other Providers: Bobo Medrano Status ED Status: Left Department Discharge Information Discharge Date/Time: 02/18/18 03:00
--- NOTE | 2018-02-17 22:05 | XR ---
EXAM DATE: 02/17/2018 10:03 PM EDT AGE/SEX: 67 years / Female INDICATIONS: Cough. Short of breath. Abdomen pain. CLINICAL DATA: This is the patient's initial encounter. Patient reports that signs and symptoms have been present for 2 days and indicates a pain score of 0/10. MEDICAL/SURGICAL HISTORY: . Carcinoma, breast. Hypertension. Hysterectomy. COMPARISON: [facility] [place], CHEST SINGLE AP, 08/27/2017. . FINDINGS: A single AP view of the chest demonstrates the lungs to be symmetrically aerated without evidence of mass, infiltrate or effusion. The cardiomediastinal contours are unremarkable. Osseous structures a re intact with chronic degenerative change again noted involving the left shoulder consistent with ch ronic rotator cuff degeneration. CONCLUSION: No acute cardiopulmonary disease. There is no evidence of pneumonia. Electronically signed by: Paul Valiente MD 02/17/2018 10:04 PM EDT
[2018-02-17 22:48] LABS: Baso # (Auto) 0.1 th/mm3 (0.0-0.2); Baso % (Auto) 0.8 % (0.0-2.0); Eos # (Auto) 0.5 th/mm3 (0.0-0.4); Eos % (Auto) 4.2 % (0.0-4.0); Hematocrit 31.5 % (35.0-46.0); Hemoglobin 10.9 gm/dL (11.6-15.3); Lymph # (Auto) 0.7 th/mm3 (1.0-4.8); Lymph % (Auto) 5.9 % (9.0-44.0); Mean Corpuscular HGB Conc 34.5 % (32.0-36.0); Mean Corpuscular Hemoglobin 32.7 pg (27.0-34.0); Mean Corpuscular Volume 94.8 fL (80.0-100.0); Mean Platelet Volume 8.5 fL (7.0-11.0); Mono # (Auto) 0.7 th/mm3 (0.0-0.9); Mono % (Auto) 6.6 % (0.0-8.0); Neut # (Auto) 9.3 th/mm3 (1.8-7.7); Neut % (Auto) 82.5 % (16.0-70.0); Platelet Count 403 th/mm3 (150-450); Red Blood Count 3.32 mil/mm3 (4.00-5.30); Red Cell Distribution Width 16.2 % (11.6-17.2); White Blood Count 11.3 th/mm3 (4.0-11.0)
[2018-02-17 23:23] LABS: Platelet Estimate Normal (Normal); Platelet Morphology Normal (Normal)
[2018-02-17 23:41] LABS: Alkaline Phosphatase 245 U/L (45-117); Total Protein 5.8 g/dL (6.4-8.2)
[2018-02-17 23:42] LABS: Alanine Aminotransferase 17 U/L (10-53); Albumin 2.3 g/dL (3.4-5.0); Anion Gap 10 meq/L (5-15); Aspartate Aminotransferase 113 U/L (15-37); Blood Urea Nitrogen 9 mg/dL (7-18); Calcium 8.3 mg/dL (8.5-10.1); Chloride 89 meq/L (98-107); Glomerular Filtration Rate Greater Than 89 mL/min (>89); Glucose,Random 91 mg/dL (74-106); Lipase 174 U/L (73-393); Potassium 3.5 meq/L (3.5-5.1); Sodium 127 meq/L (136-145)
[2018-02-18] MEDS ORDERED: Morphine Inj 4 MG/ML Vial IM ONE (00:36)
[2018-02-18 01:27] LABS: Activated Partial Thrombo Time 26.4 sec (24.3-30.1); INR 1.3 Ratio
[2018-02-18] MEDS ORDERED: Bisacodyl 10 MG Supp RECTAL PRN (01:45)
[2018-02-18] MEDS ORDERED: Morphine Inj 4 MG/ML Vial IV.PUSH PRN (02:06)
--- NOTE | 2018-02-18 02:22 | P.HPIM ---
History of Present Illness Primary Care Physician: UNKNOWN History of Present Illness: This is a 67-year-old female with a PMH of HTN, Vertigo, h/o Alcohol Abuse and Cirrhosis who presented to the ER w/ complaints of abdominal pain and distention x1 wk. Reports recent diagnosis of Cirrhosis, likely related to Alcohol Abuse-states she quit drinking approx 1mo ago at the time of her diagnosis. Has been following w/ her PCP and was referred to Dr. Hernandez w/ GI, has upcoming appt next month. Seen in ER on 02/12/18 for similar complaints of abdominal pain, recently started on antibiotics for UTI by PCP, afebrile, no leukocytosis at that time. CT Abd/Pelvis w/ moderate ascites, d/c'd on Macrobid w/ plans for outpatient follow up. Now w/ worsening abdominal pain. Pain is intermittent, severe, 10/10, non-radiating. Notes associated abdominal distention and decreased PO intake. No fever or chills. No nausea, vomiting or diarrhea. On arrival, BP 159/91, HR 111, O2 RA, Afebrile. WBC 11.3 with elevated neutrophil count. Hemoglobin 10.9. INR 1.3. Na 127. Total Bili 4.2. AST 113, ALT 17, ALP 245. CXR w/ no acute findings. - Diagnosis (1) Cirrhosis (2) Hyponatremia (3) Abdominal pain Inpatient Certification: I certify that the inpatient services were ordered in accordance with Medicare regulations governing the order. This includes certification that hospital inpatient services are reasonable and necessary and in the case of services not specified as inpatient-only under 42 CFR 419.22(n), that they are appropriately provided as inpatient services in accordance to with the 2-midnight benchmark under 43 CFR 412.3(e) Estimated Total Length of Stay (Days): 2 Plans for Post Hospital Care: Not yet determined Review of Systems PAST FAMILY HISTORY: Reviewed. No h/o DM or CAD All other systems reviewed negative except as stated in HPI PMFSH - History History Provided By: Patient - Medical History Medical History: Medical History (Last Updated 02/17/18 @ 21:23 by Charo Davila) Cirrhosis H/O: hysterectomy HTN (hypertension) Hip fx UTI (urinary tract infection) Vertigo - Tobacco History Smoking Status: Never smoker - Alcohol History How Often Do You Have a Drink Containing Alcohol: Unable to Obtain - Substance Use History Substance History: No History of Abuse - Travel History Recent Travel in the [place] Within the Last 8 Weeks: No Recent Travel Out of the Country Within the Last 8 Weeks: No - Immunization History Tetanus Immunization: Unable to Assess Medications and Allergies Active Medications: Active Medications Al Hydroxide/Mg Hydroxide (Milk Of Magnesia Liq) 30 ml PO Q12H PRN PRN Reason: Mild Constipation Bisacodyl (Dulcolax Supp) 10 mg RECTAL DAILY PRN PRN Reason: SEVERE CONSITIPATION Cefuroxime Sodium 1,500 mg/ (Sodium Chloride) 100 mls @ 200 mls/hr IV.SIG Q8H JUDY Lactulose (Lactulose Liq) 30 ml PO DAILY PRN PRN Reason: SEVERE CONSITIPATION Morphine Sulfate (Morphine Inj) 2 mg IV.PUSH Q4H PRN PRN Reason: PAIN 6-10 Ondansetron HCl (Zofran Inj) 4 mg IV.PUSH Q6H PRN PRN Reason: NAUSEA OR VOMITING Oxycodone HCl (Roxicodone) 10 mg PO Q4H PRN PRN Reason: PAIN 3-5 Senna/Docusate Sodium (Alma Delia-Colace) 1 tab PO BID JUDY Sennosides (Senokot) 17.2 mg PO Q12H PRN PRN Reason: Moderate Constipation Allergies Allergy/AdvReac Type Severity Reaction Status Date / Time raw egg Allergy Unknown Hives Uncoded 02/12/18 15:20 Home Medications Medication Instructions Recorded Confirmed Type atenolol 50 mg PO DAILY 02/12/18 02/17/18 History clonidine HCl 0.1 mg PO TID PRN 02/12/18 02/17/18 History diazepam 5 mg PO TID 02/12/18 02/17/18 History meclizine 25 mg PO DAILY PRN 02/12/18 02/17/18 History Exam Vital signs: Vital Signs 02/17/18 21:19 Temperature 98 F Pulse Rate 111 H Respiratory Rate 18 Blood Pressure 159/91 H Pulse Oximetry 95 Intake & Output 02/17/18 02/17/18 02/18/18 06:59 18:59 06:59 Weight 61.235 kg Narrative: PE: GENERAL: Middle-aged white female in no acute distress. at bedside SKIN: Focused skin assessment warm and dry. HEENT: PERRLA, EOMI. +jaundice, +icterus. No lid lag or facial droop. CARDIOVASCULAR: Regular rate and rhythm. No obvious murmurs to auscultation. No chest tenderness to palpation. RESPIRATORY: No obvious rhonchi or wheezing. Clear to auscultation. Breath sounds equal bilaterally. GASTROINTESTINAL: Abdomen soft, distended, generalized tenderness to palpation. BS normal. MUSCULOSKELETAL: Extremities without clubbing, cyanosis, or edema. No obvious deformities. NEUROLOGICAL: Awake, alert and oriented x4. No focal neurologic deficits. Moving both upper and lower extremities spontaneously. PSYCHIATRIC: Appropriate mood and affect. Insight and judgment normal. Results - Labs CBC & Chem 7: 02/17/18 22:02 02/17/18 22:25 Labs: Short CBC 02/17/18 Range/Units 22:02 WBC 11.3 H (4.0-11.0) th/mm3 Hgb 10.9 L (11.6-15.3) gm/dL Hct 31.5 L (35.0-46.0) % Plt Count 403 D (150-450) th/mm3 BMP 02/17/18 22:25 Sodium 127 L Potassium 3.5 Chloride 89 L Carbon Dioxide 28.0 BUN 9 Creatinine 0.66 Calcium 8.3 L Liver Function 02/17/18 Range/Units 22:25 Total Bilirubin 4.2 H (0.2-1.0) mg/dL AST 113 H (15-37) U/L ALT 17 (10-53) U/L Alkaline Phosphatase 245 H (45-117) U/L Albumin 2.3 L (3.4-5.0) g/dL - Imaging Impressions Chest X-Ray 02/17/18 21:43 CONCLUSION: No acute cardiopulmonary disease. There is no evidence of pneumonia. Caprini VTE Risk Assessment Caprini VTE Risk Assessment: No/Low Risk (score <= 1) VTE Pharmacological Exception Reason: High risk for bleeding Caprini Risk Assessment Model: Point Value = 1 Point Value = 2 Point Value = 3 Point Value = 5 Age 41-60 Minor surgery BMI > 25 kg/m2 Swollen legs Varicose veins or History of unexplained or recurrent spontaneous Oral contraceptives or hormone replacement Sepsis (< 1 month) Serious lung disease, including pneumonia (< 1 month) Abnormal pulmonary function Acute myocardial infarction Congestive heart failure (< 1 month) History of inflammatory bowel disease Medical patient at bed rest Age 61-74 Arthroscopic surgery Major open surgery (> 45 min) Laparoscopic surgery (> 45 min) Malignancy Confined to bed (> 72 hours) Immobilizing plaster cast Central venous access Age >= 75 History of VTE Family history of VTE Factor V Leiden Prothrombin [id number] Lupus anticoagulant Anticardiolipin antibodies Elevated serum homocysteine Heparin-induced thrombocytopenia Other congenital or acquired thrombophilia Stroke (< 1 month) Elective arthroplasty Hip, pelvis, or leg fracture Acute spinal cord injury (< 1 month) Prophylaxis Regimen: Total Risk Factor Score Risk Level Prophylaxis Regimen 0-1 Low Early ambulation 2 Moderate Order ONE of the following: *Sequential Compression Device (SCD) *Heparin 5000 units SQ BID 3-4 Higher Order ONE of the following medications: *Heparin 5000 units SQ TID *Enoxaparin/Lovenox 40 mg SQ daily (WT < 150 kg, CrCl > 30 mL/min) *Enoxaparin/Lovenox 30 mg SQ daily (WT < 150 kg, CrCl > 10-29 mL/min) *Enoxaparin/Lovenox 30 mg SQ BID (WT < 150 kg, CrCl > 30 mL/min) AND/OR *Sequential Compression Device (SCD) 5 or more Highest Order ONE of the following medications: *Heparin 5000 units SQ TID (Preferred with Epidurals) *Enoxaparin/Lovenox 40 mg SQ daily (WT < 150 kg, CrCl > 30 mL/min) *Enoxaparin/Lovenox 30 mg SQ daily (WT < 150 kg, CrCl > 10-29 mL/min) *Enoxaparin/Lovenox 30 mg SQ BID (WT < 150 kg, CrCl > 30 mL/min) AND *Sequential Compression Device (SCD) Assessment and Plan - Assessment (1) Cirrhosis Code(s): K74.60 - Unspecified cirrhosis of liver Status: Acute (2) Hyponatremia Code(s): E87.1 - Hypo-osmolality and hyponatremia Status: Acute (3) Abdominal pain Code(s): R10.9 - Unspecified abdominal pain Status: Acute - Plan A/P: 1. Cirrhosis: newly diagnosed, likely related to h/o Alcohol Abuse-quit 1mo ago, now w/ progressive abdominal distention due to ascites. CT Abd/Pelvis w/ moderate ascites, diffuse hepatic disease and cirrhosis, images reviewed. Has upcoming appt w/ Dr. Hernandez, will consult for further eval/intervention. Start Aldactone, Lasix and Propranolol. Consult IR for paracentesis. 2. Abdominal Pain: likely related to worsening ascites, however in light of elevated WBC w/ shift, concern for possible SBP. Will consult for Paracentesis- diagnostic & therapeutic, send cultures, Cefuroxime 2gm q8 following paracentesis. Analgesics/antiemetics as needed. 3. Hyponatremia: Na 127, secondary to cirrhosis, monitor I/O, repeat labs in am 4. DVT Prophylaxis: Pharmacologic contraindication in light of cirrhosis/high risk of bleeding 5. Social work for d/c planning as needed 6. Case discussed w/ ER physician at length, labs/records/imaging reviewed by me
[2018-02-18 05:37] LABS: Hemoglobin 9.8 gm/dL (11.6-15.3); Mean Corpuscular HGB Conc 32.5 % (32.0-36.0); Mean Corpuscular Hemoglobin 31.7 pg (27.0-34.0); Mean Corpuscular Volume 97.6 fL (80.0-100.0); Mean Platelet Volume 7.8 fL (7.0-11.0); Platelet Count 291 th/mm3 (150-450); Red Blood Count 3.08 mil/mm3 (4.00-5.30); Red Cell Distribution Width 16.5 % (11.6-17.2); White Blood Count 11.2 th/mm3 (4.0-11.0)
[2018-02-18 05:47] LABS: Albumin 2.2 g/dL (3.4-5.0); Anion Gap 9 meq/L (5-15); Aspartate Aminotransferase 151 U/L (15-37); Blood Urea Nitrogen 9 mg/dL (7-18); Calcium 8.1 mg/dL (8.5-10.1); Carbon Dioxide 27.8 meq/L (21.0-32.0); Chloride 88 meq/L (98-107); Glomerular Filtration Rate 71 mL/min (>89); Glucose,Random 87 mg/dL (74-106); Potassium 4.2 meq/L (3.5-5.1)
[2018-02-18 05:48] LABS: Alanine Aminotransferase 20 U/L (10-53); Sodium 125 meq/L (136-145)
[2018-02-18 05:50] LABS: Alkaline Phosphatase 243 U/L (45-117); Lactate Dehydrogenase 515 U/L (84-246)
[2018-02-18 07:32] LABS: Eosinophils 4 % (0-4); Lymphocytes 11 % (9-44); Monocytes 5 % (0-8)
[2018-02-18 07:33] LABS: Platelet Estimate Normal (Normal); Platelet Morphology Clumped (Normal); Target Cells 1+
[2018-02-18] MEDS: Spironolactone 50 MG Tablet PO SCH (09:51)
[2018-02-18] MEDS: Propranolol 10 MG Tablet PO SCH ×2 (09:51→21:30)
[2018-02-18] MEDS: Senna/Docusate Sodium 8.6/50 MG Tablet PO SCH ×2 (09:51→21:30)
[2018-02-18] MEDS: Furosemide 40 MG Tablet PO SCH (09:51)
[2018-02-18 10:48] LABS: Total Protein,Peritoneal Fluid 0.8 gm/dL
[2018-02-18] MEDS ORDERED: diazePAM 5 MG Tablet PO PRN (11:02)
--- NOTE | 2018-02-18 11:26 | US ---
EXAM DATE: 02/18/2018 10:24 AM EDT AGE/SEX: 67 years / Female INDICATIONS: Distended abdomen. Ascites. CLINICAL DATA: This is the patient's initial encounter. Patient reports that signs and symptoms have been present for 1 week and indicates a pain score of 0/10. MEDICAL/SURGICAL HISTORY: Cirrhosis. Hypertension. UTI. Ascites. Vertigo. . Paracentesis. COMPARISON: . FLUID: Total volume of 4,400 cc of clear, yellow fluid was removed. Fluid was sent to lab for ordered studie s. . . TECHNIQUE: Ultrasound guidance for abdominal paracentesis. Paracentesis. The risks, benefits, and alternatives to ultrasound guided paracentesis were explained to the patient in detail including the risk of bleeding and infection. Written and verbal informed consent was obt ained. With the patient on the ultrasound table, ultrasound imaging was used to select the most appropriate approach for paracentesis. Overlying skin was prepped and draped in the usual sterile fashion and wi th a local anesthetic, a dermatotomy was made with an 11 blade scalpel. A 6 [place] [id number] ca theter was introduced into the peritoneal cavity and fluid was collected. The patient tolerated the procedure well and left the ultrasound suite in stable condition. CONCLUSION: 1. Uncomplicated paracentesis. Electronically signed by: Edwar Betts MD 02/18/2018 11:25 AM EDT
[2018-02-18 11:27] LABS: Mesothelial,Peritoneal Fluid 11 %; Neutrophils,Peritoneal Fluid 15 %; RBC,Peritoneal Fluid 67 /mm3 (0-0)
[2018-02-18 12:48] LABS: Bacteria,Urine Moderate /hpf; Bilirubin,Urine Negative (Negative); Clarity,Urine Hazy (Clear); Color,Urine Amber (Yellw/Straw); Glucose,Urine (UA) 50 mg/dL (Negative); Hyaline Casts,Urine 19 /lpf (0-3); Leukocyte Esterase,Urine Negative (Negative); Mucus,Urine Few /lpf (Occasional); Nitrite,Urine Positive (Negative); Squamous Epithelial Cell,Urine 1 /hpf (0-5); Urobilinogen,Urine 4 or Greater mg/dL (Less than 2)
[2018-02-18] MEDS ORDERED: Lidocaine PF 1% Inj 5 ML Vial ONE ×2 (14:28)
--- NOTE | 2018-02-18 14:33 | P.PN ---
Subjective Interval history: follow up for abd. pain: pt. states abd. pain markedly improved, had paracentesis, 4.4 L drained. No nausea, no vomiting. Having urinary retention , has not been able to void since last evening. No CP. SOB improved after paracentesis. No fever. States she stopped drinking 1 month ago. Physical Exam Vital signs: Vital Signs 02/17/18 21:19 02/18/18 04:00 02/18/18 07:26 Temperature 98 F 96.6 F L 97.8 F Pulse Rate 111 H 109 H 112 H Respiratory Rate 18 18 16 Blood Pressure 159/91 H 142/82 H 143/82 H Pulse Oximetry 95 93 L 92 L 02/18/18 08:44 02/18/18 09:30 02/18/18 09:45 Temperature 97.1 F L Pulse Rate 118 H 112 H 114 H Respiratory Rate 22 22 20 Blood Pressure 156/97 H 140/80 124/73 Pulse Oximetry 88 L 93 L 94 L 02/18/18 11:44 Temperature 98.1 F Pulse Rate 112 H Respiratory Rate 14 Blood Pressure 100/62 Pulse Oximetry 90 L Intake & Output 02/17/18 02/18/18 02/18/18 18:59 06:59 18:59 Intake Total 50 / 50 Balance 50 / 50 Weight 61.235 kg Intake: IV 50 / 50 Zinacef Inj 1,500 MG In NS Inj 50 / 50 100 ML @ 200 mls/hr IV.SIG Q8H [facility] Rx#:[id number] Other: Date of Last Bowel Movement 02/18/18 Narrative: GENERAL: Middle-aged white female in no acute distress. at bedside SKIN: Focused skin assessment warm and dry. HEENT: PERRL, EOMI. +jaundice, +icterus. CARDIOVASCULAR: Regular rate and rhythm. No obvious murmurs to auscultation. No chest tenderness to palpation. RESPIRATORY: Clear to auscultation, no adventitious breath sounds.. GASTROINTESTINAL: Abdomen soft, less distended, generalized tenderness to palpation. + ascites, but improved. BS normal. MUSCULOSKELETAL: Extremities without clubbing, cyanosis, or edema. No obvious deformities. NEUROLOGICAL: Awake, alert and oriented x4. No focal neurologic deficits. Moving both upper and lower extremities spontaneously. PSYCHIATRIC: Appropriate mood and affect. Insight and judgment normal. Results - Labs CBC & Chem 7: 02/18/18 04:50 02/18/18 04:50 Laboratory Results - last 24 hr 02/17/18 02/17/18 02/17/18 22:02 22:02 22:02 WBC 11.3 H RBC 3.32 L Hgb 10.9 L Hct 31.5 L MCV 94.8 MCH 32.7 MCHC 34.5 RDW 16.2 Plt Count 403 D MPV 8.5 Prelim Diff (Auto) Slide review pending Neut % (Auto) 82.5 H Lymph % (Auto) 5.9 L [place] % (Auto) 6.6 Eos % (Auto) 4.2 H Baso % (Auto) 0.8 Neut # (Auto) 9.3 H Lymph # (Auto) 0.7 L [place] # (Auto) 0.7 Eos # (Auto) 0.5 H Baso # (Auto) 0.1 WBC Differential . Diff Scan Auto diff confirmed Seg Neuts % (Manual) Lymphocytes % (Manual) Monocytes % (Manual) Eosinophils % (Manual) Basophils % (Manual) Abs Neuts (Manual) Differential Comment . Platelet Estimate Normal Platelet Morphology Normal Target Cells PT 13.0 H INR 1.3 APTT 26.4 Sodium Potassium Chloride Carbon Dioxide Anion Gap BUN Creatinine Estimated GFR Random Glucose Calcium Total Bilirubin AST ALT Alkaline Phosphatase Ammonia Less than 10 L Lactate Dehydrogenase Total Protein Albumin Lipase Urine Color Urine Clarity Urine pH Ur Specific [place] Urine Protein Urine Glucose (UA) Urine Ketones Urine Occult Blood Urine Nitrate Urine Bilirubin Urine Urobilinogen Ur Leukocyte Esterase Urine RBC Urine WBC Ur Squamous Epith Cells Urine Bacteria Hyaline Casts Urine Mucus Ur Microscopic Review Peritoneal RBC Periton Nuc Cells Periton Neutrophils Periton Lymphocytes Peritoneal Monocytes Periton Mesothelial Periton Histiocytes Peritoneal Tot Protein Peritoneal Albumin Peritoneal LDH Peritoneal Glucose Peritoneal Amylase 02/17/18 02/18/18 02/18/18 22:25 04:50 04:50 WBC 11.2 H RBC 3.08 L Hgb 9.8 L Hct 30.0 L MCV 97.6 MCH 31.7 MCHC 32.5 RDW 16.5 Plt Count 291 MPV 7.8 Prelim Diff (Auto) Manual diff required Neut % (Auto) Lymph % (Auto) [place] % (Auto) Eos % (Auto) Baso % (Auto) Neut # (Auto) Lymph # (Auto) [place] # (Auto) Eos # (Auto) Baso # (Auto) WBC Differential Manual diff final Diff Scan Seg Neuts % (Manual) 78 H Lymphocytes % (Manual) 11 Monocytes % (Manual) 5 Eosinophils % (Manual) 4 Basophils % (Manual) 2 Abs Neuts (Manual) 8.7 H Differential Comment . Platelet Estimate Normal Platelet Morphology Clumped H Target Cells 1+ H PT INR APTT Sodium 127 L 125 L Potassium 3.5 4.2 Chloride 89 L 88 L Carbon Dioxide 28.0 27.8 Anion Gap 10 9 BUN 9 9 Creatinine 0.66 0.81 Estimated GFR Greater than 89 71 L Random Glucose 91 87 Calcium 8.3 L 8.1 L Total Bilirubin 4.2 H 4.5 H AST 113 H 151 H ALT 17 20 Alkaline Phosphatase 245 H 243 H Ammonia Lactate Dehydrogenase 515 H Total Protein 5.8 L 6.0 L Albumin 2.3 L 2.2 L Lipase 174 Urine Color Urine Clarity Urine pH Ur Specific [place] Urine Protein Urine Glucose (UA) Urine Ketones Urine Occult Blood Urine Nitrate Urine Bilirubin Urine Urobilinogen Ur Leukocyte Esterase Urine RBC Urine WBC Ur Squamous Epith Cells Urine Bacteria Hyaline Casts Urine Mucus Ur Microscopic Review Peritoneal RBC Periton Nuc Cells Periton Neutrophils Periton Lymphocytes Peritoneal Monocytes Periton Mesothelial Periton Histiocytes Peritoneal Tot Protein Peritoneal Albumin Peritoneal LDH Peritoneal Glucose Peritoneal Amylase 02/18/18 02/18/18 02/18/18 09:03 09:03 11:19 WBC RBC Hgb Hct MCV MCH MCHC RDW Plt Count MPV Prelim Diff (Auto) Neut % (Auto) Lymph % (Auto) [place] % (Auto) Eos % (Auto) Baso % (Auto) Neut # (Auto) Lymph # (Auto) [place] # (Auto) Eos # (Auto) Baso # (Auto) WBC Differential Diff Scan Seg Neuts % (Manual) Lymphocytes % (Manual) Monocytes % (Manual) Eosinophils % (Manual) Basophils % (Manual) Abs Neuts (Manual) Differential Comment Platelet Estimate Platelet Morphology Target Cells PT INR APTT Sodium Potassium Chloride Carbon Dioxide Anion Gap BUN Creatinine Estimated GFR Random Glucose Calcium Total Bilirubin AST ALT Alkaline Phosphatase Ammonia Lactate Dehydrogenase Total Protein Albumin Lipase Urine Color [place]athy Urine Clarity Hazy H Urine pH 5.0 Ur Specific [place] 1.020 Urine Protein 30 H Urine Glucose (UA) 50 Urine Ketones 20 Urine Occult Blood Negative Urine Nitrate Positive H Urine Bilirubin Negative Urine Urobilinogen 4 or greater Ur Leukocyte Esterase Negative Urine RBC 1 Urine WBC 6 H Ur Squamous Epith Cells 1 Urine Bacteria Moderate H Hyaline Casts 19 Urine Mucus Few H Ur Microscopic Review Not Reportable Peritoneal RBC 67 H Periton Nuc Cells 267 H Periton Neutrophils 15 Periton Lymphocytes 47 Peritoneal Monocytes 19 Periton Mesothelial 11 Periton Histiocytes 8 Peritoneal Tot Protein 0.8 Peritoneal Albumin 0.4 Peritoneal LDH 32 Peritoneal Glucose 102 Peritoneal Amylase 30 Microbiology 02/17/18 22:26 Blood - Peripheral Aerobic Blood Culture - Preliminary No growth in 1 day 02/17/18 22:26 Blood - Peripheral Anaerobic Blood Culture - Preliminary No growth in 1 day 02/17/18 22:16 Blood - Peripheral Aerobic Blood Culture - Preliminary No growth in 1 day 02/17/18 22:16 Blood - Peripheral Anaerobic Blood Culture - Preliminary No growth in 1 day - Imaging Impressions Chest X-Ray 02/17/18 21:43 CONCLUSION: No acute cardiopulmonary disease. There is no evidence of pneumonia. Paracentesis Ultrasound 02/18/18 00:00 CONCLUSION: 1. Uncomplicated paracentesis. Assessment and Plan - Assessment (1) Cirrhosis Code(s): K74.60 - Unspecified cirrhosis of liver Status: Acute (2) Hyponatremia Code(s): E87.1 - Hypo-osmolality and hyponatremia Status: Acute (3) Abdominal pain Code(s): R10.9 - Unspecified abdominal pain Status: Acute (4) Ascites Code(s): R18.8 - Other ascites Status: Acute (5) Hypertension Code(s): I10 - Essential (primary) hypertension Status: Chronic (6) History of ETOH abuse Code(s): Z87.898 - Personal history of other specified conditions Status: Chronic (7) Urinary retention Code(s): R33.9 - Retention of urine, unspecified Status: Acute - Plan Assessment/Plan: 67-year-old female with a PMH of HTN, Vertigo, h/o Alcohol Abuse and Cirrhosis who presented to the ER w/ complaints of abdominal pain and distention x1 wk. recently diagnosed with cirrhosis, likely secondary to alcohol abuse. Quit drinking one month ago. CT of abdomen pelvis with findings of moderate ascites. Recently started on antibiotics for UTI. On Macrobid. Abdominal pain, secondary to ascites Cirrhosis, newly diagnosed, likely secondary to alcohol abuse. With drinking [address] abdomen pelvis 02/12/2018 with findings of ascites, diffuse hepatic disease and cirrhosis -Status post paracentesis, 4400 cc drained. Follow cytology of fluid GI consulted Continue with Aldactone, Lasix and propanolol Patient was noted with leukocytosis with shift, concern for possible SBP. Continue with cefuroxime 2 g IV every 8. Hyponatremia: Na 127>125, secondary to cirrhosis -monitor I/O -Repeat labs in am Urinary retention -Bladder scan now and straight if needed Recent UTI -UA pending -continue Cefuroxime HTN BP well controlled On Atenolol at home -will continue on Propanolol for now. DVT Prophylaxis: Pharmacologic contraindication in light of cirrhosis/high risk of bleeding Repeat labs in am and f/u cytology from peritoneal fluid Poss dc tomorrow if cleared by GI D/W RN, pt, CM (1) Cirrhosis Qualifiers: Hepatic cirrhosis type: alcoholic cirrhosis Ascites presence: with ascites Qualified Code(s): K70.31 - Alcoholic cirrhosis of liver with ascites (3) Abdominal pain Qualifiers: Abdominal location: generalized Qualified Code(s): R10.84 - Generalized abdominal pain (4) Ascites Qualifiers: Ascites type: due to alcoholic cirrhosis Qualified Code(s): K70.31 - Alcoholic cirrhosis of liver with ascites (5) Hypertension Qualifiers: Hypertension type: essential hypertension Qualified Code(s): I10 - Essential (primary) hypertension
[2018-02-18 17:00] LABS: % Iron Saturation 20.7 % (20-50)
--- NOTE | 2018-02-18 17:06 | MB ---
cc: Bobo Medrano MD, Camille MD DATE: 02/18/2018 REASON FOR CONSULTATION: I have been asked to see the patient at the request of Dr. Link for evaluation of cirrhosis and ascites. HISTORY OF PRESENT ILLNESS: The patient is a pleasant 67-year-old white female, who has been followed in our office for increased LFTs and fatty liver. She does have a history of alcohol abuse and we advised her to stop drinking. She has also had colon cancer screening through our office. Recently, she presented to ER with increased abdominal pain. A CAT scan on 02/12/2018 revealed a nodular contour suggesting the possibility of cirrhosis. There is also ascites. She was supposed to have an appointment to come and see us shortly, but she had increasing pain throughout her abdomen. It was crampy in nature and she came to the emergency room. She was subsequently admitted and we were asked to see her. In the interim, she has had a paracentesis and once the fluid was removed she felt somewhat better. She has been on antibiotics in the past for a UTI, but she could not tell me if it was 2 weeks ago or last week. She denies any type of dysphagia, odynophagia, early satiety, sense of nausea, no vomiting. No melena, diarrhea, or constipation. PAST MEDICAL HISTORY: Significant for fatty liver, a short segment Emery's, gastric ulcers. She has had anemia, gastroparesis, increased LFTs, hyponatremia, hyperplastic colon polyp, colonic diverticulosis, internal hemorrhoids, recent UTI. ALLERGIES: NO KNOWN DRUG ALLERGIES. FAMILY HISTORY: No colon cancer or colon polyps. PAST SURGICAL HISTORY: She has had a hysterectomy, left breast lumpectomy, fracture of left shoulder. SOCIAL HISTORY: Does not smoke. In regards to alcohol, she stopped drinking 1 or 2 months ago. She used to drink a bottle of wine a day. REVIEW OF SYSTEMS: No weight loss, fever, or chills. CARDIOPULMONARY: No chest pain, palpitation, shortness of breath. GASTROINTESTINAL: Please see above. She has also had some problems sleeping at night, mainly with insomnia, but this is nothing new. MEDICATIONS: As an outpatient are: 1. Atenolol. 2. Losartan. 3. Clonidine. 4. Diazepam. 5. Atelvia. 6. Aleve. 7. Acidophilus. 8. Omeprazole. 9. Ranitidine. 10. Magnesium. 11. Flaxseed oil. MEDICATIONS IN THE HOSPITAL: Include: 1. Milk of magnesia. 2. Dulcolax. 3. Cefuroxime. 4. Valium. 5. Lasix 40 mg daily. 6. Lactulose. 7. Morphine. 8. Zofran. 9. OxyContin. 10. Inderal 10 mg b.i.d. 11. Senokot. 12. Alma Delia-Colace. 13. Aldactone 50 mg daily. PHYSICAL EXAMINATION: VITAL SIGNS: Blood pressure is 143/82, pulse of 112, respiration rate 16, temperature 97.8. GENERAL: She is a 67-year-old white female who looks older than stated age, appears to be in no acute GI distress. HEENT: Pupils equal and reactive to light. There was scleral icterus. Oropharyngeal had dental caries. No tongue deviation or Candidal lesions. Hearing was intact. NECK: Supple. No lymphadenopathy. LUNGS: Clear to auscultation and percussion. HEART: Regular rate and rhythm. No gross murmurs are heard. ABDOMEN: Soft, nondistended, mild diffuse tenderness, but no rebound tenderness or organomegaly. I could not feel any ascites. She is status post paracentesis today. EXTREMITIES: She had no cyanosis, clubbing, or edema. NEUROLOGIC: Her cranial nerves were 2-12 grossly intact. There is no asterixis. SKIN: Warm and moist. There was evidence of jaundice. NEUROLOGIC: She is alert and oriented x3. Cranial nerves 2-12 are grossly intact set that. IMPRESSION: 1. Cirrhosis and ascites - more likely related to alcohol and fatty liver; however, cannot rule out other causes also. 2. Diffuse abdominal pain, better at this time after paracentesis. I suspect this is related to ascites. It may even be partially treated spontaneous bacterial peritonitis. 3. Alcohol abuse. She says she stopped more than 2 months ago. 4. Probable low-grade hepatic encephalopathy - she has had some insomnia. The insomnia is chronic, but worse recently. RECOMMENDATIONS: 1. Chronic liver workup (labs ordered). 2. Please check alpha fetoprotein. 3. Continue lactulose, but I will add on Xifaxan also. 4. The elevated white blood cell count in the ascitic fluid could point to spontaneous bacterial peritonitis; however, it is mainly lymphocytes and not neutrophils. This normally points against spontaneous bacterial peritonitis. However, she was on antibiotics and it could have been as recently as a few weeks ago, so this may be partially treated. At this time, I will continue the antibiotics and treat her like she has spontaneous bacterial peritonitis. 7. Continue Aldactone and Lasix for now. We may have to adjust the dose in the future. 8. Eventually, she will need an outpatient upper endoscopy to check for varices. Last upper endoscopy in 2015 did not show any varices. 9. Further recommendations depend on how she does. Bobo Medrano MD SPP/pw , 02:29 PM , 02:47 PM
[2018-02-18 17:16] LABS: Alpha Fetoprotein Tumor Marker 5.7 ng/mL (0.5-8.0)
[2018-02-18] MEDS: rifAXIMin 550 MG Tablet PO SCH (21:30)
[2018-02-19 07:17] LABS: INR 1.4 Ratio; Prothrombin Time 14.4 sec (9.8-11.6)
[2018-02-19 07:55] LABS: Alanine Aminotransferase 14 U/L (10-53); Albumin 1.8 g/dL (3.4-5.0); Alkaline Phosphatase 217 U/L (45-117); Anion Gap 11 meq/L (5-15); Aspartate Aminotransferase 94 U/L (15-37); Blood Urea Nitrogen 9 mg/dL (7-18); Calcium 7.8 mg/dL (8.5-10.1); Carbon Dioxide 26.5 meq/L (21.0-32.0); Chloride 89 meq/L (98-107); Glomerular Filtration Rate Greater Than 89 mL/min (>89); Glucose,Random 85 mg/dL (74-106); Potassium 3.2 meq/L (3.5-5.1); Sodium 126 meq/L (136-145); Total Protein 5.1 g/dL (6.4-8.2)
[2018-02-19 08:44] LABS: Hepatitis A IgM Antibody Nonreactive (Nonreactive)
[2018-02-19 08:47] LABS: Hepatitits B Surface Antigen Nonreactive (Nonreactive)
--- NOTE | 2018-02-19 09:03 | P.PNGI ---
Subjective Interval history: Patient feeling much better after paracentesis. Still with some abdominal pain if she coughs but not as severe than on admission. Acute hepatitis panel negative. Other chronic liver tests pending. No nausea, vomiting, melena or hematochezia Physical Exam Vital signs: Vital Signs 02/18/18 09:30 02/18/18 09:45 02/18/18 11:44 Temperature 98.1 F Pulse Rate 112 H 114 H 112 H Respiratory Rate 22 20 14 Blood Pressure 140/80 124/73 100/62 Pulse Oximetry 93 L 94 L 90 L 02/18/18 16:00 02/18/18 20:00 02/19/18 00:00 Temperature 98.4 F 98.2 F 97.7 F Pulse Rate 118 H 84 85 Respiratory Rate 16 16 16 Blood Pressure 137/72 116/65 116/65 Pulse Oximetry 94 L 92 L 93 L 02/19/18 04:00 02/19/18 08:00 Temperature 97.9 F 97.6 F Pulse Rate 87 88 Respiratory Rate 16 16 Blood Pressure 112/68 123/75 Pulse Oximetry 93 L 90 L Intake & Output 02/18/18 02/19/18 02/19/18 18:59 06:59 18:59 Intake Total 250 / 250 245 / 245 Balance 250 / 250 245 / 245 Weight 61.235 kg Intake: IV 250 / 250 100 / 100 Zinacef Inj 1,500 MG In NS Inj 250 / 250 100 / 100 100 ML @ 200 mls/hr IV.SIG Q8H [facility] Rx#:[id number] Oral 145 / 145 Other: # Voids 1 # Urine Diapers 0 - Constitutional no acute distress - Routine HEENT Exam Eye: Present: scleral injection - Routine Neck Exam Present: supple - Routine Respiratory Exam Present: CTA bilaterally - Routine Cardiovascular Exam Present: RRR - Routine Abdominal Exam Present: soft, normoactive bowel sounds. Absent: tenderness, distended Results - Labs CBC & Chem 7: 02/18/18 04:50 02/19/18 06:15 Laboratory Results - last 24 hr 02/18/18 02/18/18 02/18/18 04:50 09:03 09:03 ESR PT INR Sodium Potassium Chloride Carbon Dioxide Anion Gap BUN Creatinine Estimated GFR Random Glucose Calcium Iron 44 L TIBC 213 L % Saturation 20.7 Ferritin 75 Total Bilirubin AST ALT Alkaline Phosphatase Total Protein Albumin Tumor Marker AFP 5.7 Urine Color Urine Clarity Urine pH Ur Specific [place] Urine Protein Urine Glucose (UA) Urine Ketones Urine Occult Blood Urine Nitrate Urine Bilirubin Urine Urobilinogen Ur Leukocyte Esterase Urine RBC Urine WBC Ur Squamous Epith Cells Urine Bacteria Hyaline Casts Urine Mucus Ur Microscopic Review Peritoneal RBC 67 H Periton Nuc Cells 267 H Periton Neutrophils 15 Periton Lymphocytes 47 Peritoneal Monocytes 19 Periton Mesothelial 11 Periton Histiocytes 8 Peritoneal Tot Protein 0.8 Peritoneal Albumin 0.4 Peritoneal LDH 32 Peritoneal Glucose 102 Peritoneal Amylase 30 Hepatitis A IgM Ab Hep Bs Antigen Hep Bs Antibody Hep B Core IgM Ab Hep C IgG Ab 02/18/18 02/19/18 02/19/18 11:19 06:15 06:15 ESR 52 H PT INR Sodium Potassium Chloride Carbon Dioxide Anion Gap BUN Creatinine Estimated GFR Random Glucose Calcium Iron TIBC % Saturation Ferritin Total Bilirubin AST ALT Alkaline Phosphatase Total Protein Albumin Tumor Marker AFP Urine Color Cathy Urine Clarity Hazy H Urine pH 5.0 Ur Specific [place] 1.020 Urine Protein 30 H Urine Glucose (UA) 50 Urine Ketones 20 Urine Occult Blood Negative Urine Nitrate Positive H Urine Bilirubin Negative Urine Urobilinogen 4 or greater Ur Leukocyte Esterase Negative Urine RBC 1 Urine WBC 6 H Ur Squamous Epith Cells 1 Urine Bacteria Moderate H Hyaline Casts 19 Urine Mucus Few H Ur Microscopic Review Not Reportable Peritoneal RBC Periton Nuc Cells Periton Neutrophils Periton Lymphocytes Peritoneal Monocytes Periton Mesothelial Periton Histiocytes Peritoneal Tot Protein Peritoneal Albumin Peritoneal LDH Peritoneal Glucose Peritoneal Amylase Hepatitis A IgM Ab Hep Bs Antigen Hep Bs Antibody Less than 3.1 Hep B Core IgM Ab Hep C IgG Ab 02/19/18 02/19/18 02/19/18 06:15 06:15 06:15 ESR PT 14.4 H INR 1.4 Sodium 126 L Potassium 3.2 L D Chloride 89 L Carbon Dioxide 26.5 Anion Gap 11 BUN 9 Creatinine 0.58 Estimated GFR Greater than 89 Random Glucose 85 Calcium 7.8 L Iron TIBC % Saturation Ferritin Total Bilirubin 3.9 H AST 94 H ALT 14 Alkaline Phosphatase 217 H Total Protein 5.1 L D Albumin 1.8 L Tumor Marker AFP Urine Color Urine Clarity Urine pH Ur Specific [place] Urine Protein Urine Glucose (UA) Urine Ketones Urine Occult Blood Urine Nitrate Urine Bilirubin Urine Urobilinogen Ur Leukocyte Esterase Urine RBC Urine WBC Ur Squamous Epith Cells Urine Bacteria Hyaline Casts Urine Mucus Ur Microscopic Review Peritoneal RBC Periton Nuc Cells Periton Neutrophils Periton Lymphocytes Peritoneal Monocytes Periton Mesothelial Periton Histiocytes Peritoneal Tot Protein Peritoneal Albumin Peritoneal LDH Peritoneal Glucose Peritoneal Amylase Hepatitis A IgM Ab Nonreactive Hep Bs Antigen Nonreactive Hep Bs Antibody Hep B Core IgM Ab Nonreactive Hep C IgG Ab Nonreactive Microbiology 02/17/18 22:26 Blood - Peripheral Aerobic Blood Culture - Preliminary No growth in 1 day 02/17/18 22:26 Blood - Peripheral Anaerobic Blood Culture - Preliminary No growth in 1 day 02/17/18 22:16 Blood - Peripheral Aerobic Blood Culture - Preliminary No growth in 1 day 02/17/18 22:16 Blood - Peripheral Anaerobic Blood Culture - Preliminary No growth in 1 day - Imaging Impressions Paracentesis Ultrasound 02/18/18 00:00 CONCLUSION: 1. Uncomplicated paracentesis. Assessment and Plan - Attending Attestation IMPRESSION: 1. Cirrhosis and ascites-probable alcohol. Awaiting other lab tests. ? Partially treated SBP 2. Diffuse abdominal pain--better. Some pain noted this morning but not as bad as before 3. Alcohol abuse. She says she stopped more than 2 months ago. 4. Probable low-grade hepatic encephalopathy -improved. Continue lactulose and Xifaxan RECOMMENDATIONS: 1. Awaiting chronic liver labs 2. Sodium slightly low. Will DC Lasix 3. Continue antibiotics for possible partially treated SBP 4. Eventually, she will need an outpatient upper endoscopy to check for varices. Last upper endoscopy in 2016 did not show any varices. 5. Dr. Hernandez to see the patient tomorrow.
[2018-02-19] MEDS: Propranolol 10 MG Tablet PO SCH ×2 (10:49→20:05)
[2018-02-19] MEDS: rifAXIMin 550 MG Tablet PO SCH ×2 (10:49→20:07)
[2018-02-19] MEDS: Spironolactone 50 MG Tablet PO SCH (10:49)
[2018-02-19] MEDS: Senna/Docusate Sodium 8.6/50 MG Tablet PO SCH ×2 (10:50→20:07)
[2018-02-19] MEDS: Furosemide 40 MG Tablet PO SCH (11:31)
[2018-02-19] MEDS: Sodium Chloride 1 GM Tablet PO SCH (11:32)
--- NOTE | 2018-02-19 17:56 | P.PN ---
Subjective Interval history: Patient seen lying in bed. She reports that her abdominal pain is much better since undergoing paracentesis. Denies any chest pain or shortness of breath. No nausea vomiting or diarrhea. Denies dysuria and has not had any urinary retention since last night. Physical Exam Vital signs: Vital Signs 02/18/18 20:00 02/19/18 00:00 02/19/18 04:00 Temperature 98.2 F 97.7 F 97.9 F Pulse Rate 84 85 87 Respiratory Rate 16 16 16 Blood Pressure 116/65 116/65 112/68 Pulse Oximetry 92 L 93 L 93 L 02/19/18 08:00 02/19/18 12:00 02/19/18 16:00 Temperature 97.6 F 97.7 F 98.4 F Pulse Rate 88 86 90 Respiratory Rate 16 18 18 Blood Pressure 123/75 118/73 114/62 Pulse Oximetry 90 L 92 L 96 Intake & Output 02/18/18 02/19/18 02/19/18 18:59 06:59 18:59 Intake Total 250 / 250 245 / 245 100 / 100 Balance 250 / 250 245 / 245 100 / 100 Weight 61.235 kg 58.3 kg Intake: IV 250 / 250 100 / 100 100 / 100 Zinacef Inj 1,500 MG In NS Inj 250 / 250 100 / 100 100 / 100 100 ML @ 200 mls/hr IV.SIG Q8H JUDY Rx#:[id number] Oral 145 / 145 Other: # Voids 1 # Urine Diapers 0 Weight On Admission 61.235 kg Narrative: GENERAL: Middle-aged white female in no acute distress. SKIN: Focused skin assessment warm and dry. HEENT: PERRL, EOMI. +jaundice, +icterus. CARDIOVASCULAR: Regular rate and rhythm. No obvious murmurs to auscultation. No chest tenderness to palpation. RESPIRATORY: Clear to auscultation, no adventitious breath sounds.. GASTROINTESTINAL: Abdomen soft, less distended, generalized tenderness to palpation. + ascites, but improved. BS normal. MUSCULOSKELETAL: Extremities without clubbing, cyanosis, or edema. No obvious deformities. NEUROLOGICAL: Awake, alert and oriented x4. No focal neurologic deficits. Moving both upper and lower extremities spontaneously. PSYCHIATRIC: Appropriate mood and affect. Insight and judgment normal. Results - Labs CBC & Chem 7: 02/18/18 04:50 02/19/18 06:15 Laboratory Results - last 24 hr 02/19/18 02/19/18 02/19/18 06:15 06:15 06:15 ESR 52 H PT INR Sodium Potassium Chloride Carbon Dioxide Anion Gap BUN Creatinine Estimated GFR Random Glucose Calcium Total Bilirubin AST ALT Alkaline Phosphatase Total Protein Albumin Hepatitis A IgM Ab Nonreactive Hep Bs Antigen Nonreactive Hep Bs Antibody Less than 3.1 Hep B Core IgM Ab Nonreactive Hep C IgG Ab Nonreactive 02/19/18 02/19/18 06:15 06:15 ESR PT 14.4 H INR 1.4 Sodium 126 L Potassium 3.2 L D Chloride 89 L Carbon Dioxide 26.5 Anion Gap 11 BUN 9 Creatinine 0.58 Estimated GFR Greater than 89 Random Glucose 85 Calcium 7.8 L Total Bilirubin 3.9 H AST 94 H ALT 14 Alkaline Phosphatase 217 H Total Protein 5.1 L D Albumin 1.8 L Hepatitis A IgM Ab Hep Bs Antigen Hep Bs Antibody Hep B Core IgM Ab Hep C IgG Ab Microbiology 02/17/18 22:26 Blood - Peripheral Aerobic Blood Culture - Preliminary No growth in 2 days 02/17/18 22:26 Blood - Peripheral Anaerobic Blood Culture - Preliminary No growth in 2 days 02/17/18 22:16 Blood - Peripheral Aerobic Blood Culture - Preliminary No growth in 2 days 02/17/18 22:16 Blood - Peripheral Anaerobic Blood Culture - Preliminary No growth in 2 days Assessment and Plan - Assessment (1) Cirrhosis Code(s): K74.60 - Unspecified cirrhosis of liver Status: Acute (2) Hyponatremia Code(s): E87.1 - Hypo-osmolality and hyponatremia Status: Acute (3) Abdominal pain Code(s): R10.9 - Unspecified abdominal pain Status: Acute (4) Ascites Code(s): R18.8 - Other ascites Status: Acute (5) Hypertension Code(s): I10 - Essential (primary) hypertension Status: Chronic (6) History of ETOH abuse Code(s): Z87.898 - Personal history of other specified conditions Status: Chronic (7) Urinary retention Code(s): R33.9 - Retention of urine, unspecified Status: Acute - Plan Assessment/Plan: 67-year-old female with a PMH of HTN, Vertigo, h/o Alcohol Abuse and Cirrhosis who presented to the ER w/ complaints of abdominal pain and distention x1 wk. recently diagnosed with cirrhosis, likely secondary to alcohol abuse. Quit drinking one month ago. CT of abdomen pelvis with findings of moderate ascites. Recently started on antibiotics for UTI. On Macrobid. Ascites; Abdominal pain Cirrhosis, newly diagnosed, likely secondary to alcohol abuse. CT abdomen pelvis 02/12/2018 with findings of ascites, diffuse hepatic disease and cirrhosis -Status post paracentesis 02/18, 4400 cc drained. Follow cytology of fluid GI consulted Continue with Aldactone, Lasix and propanolol - lasix held by GI 02/19 due to Na 126 Patient was noted with leukocytosis with shift, concern for possible SBP. Continue with cefuroxime 2 g IV every 8. Hyponatremia: Na 127>125, secondary to cirrhosis -monitor I/O -Add 1 g Na; repeat labs in am Urinary retention;resolved -Monitor and recath if needed Recent UTI -UA pending -continue Cefuroxime HTN BP well controlled On Atenolol at home -will continue on Propanolol for now. DVT Prophylaxis: Pharmacologic contraindication in light of cirrhosis/high risk of bleeding Repeat labs in am and f/u cytology from peritoneal fluid Poss dc tomorrow if cleared by MARCO D/W RN, pt, CM (1) Cirrhosis Qualifiers: Hepatic cirrhosis type: alcoholic cirrhosis Ascites presence: with ascites Qualified Code(s): K70.31 - Alcoholic cirrhosis of liver with ascites (3) Abdominal pain Qualifiers: Abdominal location: generalized Qualified Code(s): R10.84 - Generalized abdominal pain (4) Ascites Qualifiers: Ascites type: due to alcoholic cirrhosis Qualified Code(s): K70.31 - Alcoholic cirrhosis of liver with ascites (5) Hypertension Qualifiers: Hypertension type: essential hypertension Qualified Code(s): I10 - Essential (primary) hypertension
[2018-02-20 08:34] LABS: Anion Gap 10 meq/L (5-15); Blood Urea Nitrogen 10 mg/dL (7-18); Carbon Dioxide 26.7 meq/L (21.0-32.0); Chloride 90 meq/L (98-107); Glomerular Filtration Rate Greater Than 89 mL/min (>89); Glucose,Random 82 mg/dL (74-106); Magnesium 2.1 mg/dL (1.5-2.5); Phosphorus 2.8 mg/dL (2.5-4.9); Potassium 3.6 meq/L (3.5-5.1); Sodium 127 meq/L (136-145)
--- NOTE | 2018-02-20 09:27 | P.PNGI ---
Subjective Interval history: Pt had diffuse abd pain last night but believes it is gas pain. No BM for several days. Physical Exam Vital signs: Vital Signs 02/19/18 12:00 02/19/18 16:00 02/19/18 19:02 Temperature 97.7 F 98.4 F Pulse Rate 86 90 Respiratory Rate 18 18 2 L Blood Pressure 118/73 114/62 Pulse Oximetry 92 L 96 02/19/18 20:00 02/20/18 00:47 Temperature 97.3 F L 97.6 F Pulse Rate 85 86 Respiratory Rate 16 17 Blood Pressure 106/64 132/70 Pulse Oximetry 94 L 96 Intake & Output 02/19/18 02/20/18 02/20/18 18:59 06:59 18:59 Intake Total 300 / 300 580 / 580 Balance 300 / 300 580 / 580 Weight 58.3 kg 58 kg Intake: IV 100 / 100 100 / 100 Zinacef Inj 1,500 MG In NS Inj 100 / 100 100 / 100 100 ML @ 200 mls/hr IV.SIG Q8H JUDY Rx#:[id number] Oral 200 / 200 480 / 480 Other: # Voids 1 2 # Bowel Movements 0 Weight On Admission 61.235 kg Narrative: Alert and oriented x 3 breathing nonlabored abd soft, mildly distended with ascites. No tenderness. Prominent venous pattern upper abd. 1+ pitting edema ankles. - Constitutional no acute distress Results - Labs CBC & Chem 7: 02/18/18 04:50 02/20/18 07:23 Laboratory Results - last 24 hr 02/20/18 07:23 Sodium 127 L Potassium 3.6 Chloride 90 L Carbon Dioxide 26.7 Anion Gap 10 BUN 10 Creatinine 0.58 Estimated GFR Greater than 89 Random Glucose 82 Calcium 8.0 L Phosphorus 2.8 Magnesium 2.1 Microbiology 02/17/18 22:26 Blood - Peripheral Aerobic Blood Culture - Preliminary No growth in 2 days 02/17/18 22:26 Blood - Peripheral Anaerobic Blood Culture - Preliminary No growth in 2 days 02/17/18 22:16 Blood - Peripheral Aerobic Blood Culture - Preliminary No growth in 2 days 02/17/18 22:16 Blood - Peripheral Anaerobic Blood Culture - Preliminary No growth in 2 days Assessment and Plan (1) SBP (spontaneous bacterial peritonitis) Status: Acute Code(s): K65.2 - Spontaneous bacterial peritonitis (2) Cirrhosis Status: Acute Code(s): K74.60 - Unspecified cirrhosis of liver (3) Hyponatremia Status: Acute Code(s): E87.1 - Hypo-osmolality and hyponatremia (4) Ascites Status: Acute Code(s): R18.8 - Other ascites (5) History of ETOH abuse Status: Chronic Code(s): Z87.898 - Personal history of other specified conditions (6) Constipation Status: Acute Code(s): K59.00 - Constipation, unspecified - Plan Rec increase lactulose until moving bowels and then titrate to produce 1-2 soft BM/day. Continue aldactone Can continue antibiotics orally for presumed SBP as outpt. Should be able to discharge home soon. Pt confirms she stopped drinking alcohol a couple of months ago. Will need f/u with me in office after discharge. (2) Cirrhosis Qualifiers: Hepatic cirrhosis type: alcoholic cirrhosis Ascites presence: with ascites Qualified Code(s): K70.31 - Alcoholic cirrhosis of liver with ascites (4) Ascites Qualifiers: Ascites type: due to alcoholic cirrhosis Qualified Code(s): K70.31 - Alcoholic cirrhosis of liver with ascites
[2018-02-20] MEDS: Spironolactone 50 MG Tablet PO SCH (10:11)
[2018-02-20] MEDS: rifAXIMin 550 MG Tablet PO SCH (10:11)
[2018-02-20] MEDS: Propranolol 10 MG Tablet PO SCH (10:11)
[2018-02-20] MEDS: Sodium Chloride 1 GM Tablet PO SCH (10:11)
[2018-02-20] MEDS: Senna/Docusate Sodium 8.6/50 MG Tablet PO SCH (10:11)
--- NOTE | 2018-02-20 11:40 | P.PN ---
Subjective Interval history: Follow-up abdominal pain with ascites. States she developed worsening vertigo with pain medicine taken for abdominal pain. She has not been out of bed today. No BM since Sunday. Physical Exam Vital signs: Vital Signs 02/19/18 12:00 02/19/18 16:00 02/19/18 19:02 Temperature 97.7 F 98.4 F Pulse Rate 86 90 Respiratory Rate 18 18 2 L Blood Pressure 118/73 114/62 Pulse Oximetry 92 L 96 02/19/18 20:00 02/20/18 00:47 02/20/18 08:00 Temperature 97.3 F L 97.6 F 97.6 F Pulse Rate 85 86 91 H Respiratory Rate 16 17 17 Blood Pressure 106/64 132/70 119/71 Pulse Oximetry 94 L 96 94 L Intake & Output 02/19/18 02/20/18 02/20/18 18:59 06:59 18:59 Intake Total 300 / 300 580 / 580 Balance 300 / 300 580 / 580 Weight 58.3 kg 58 kg Intake: IV 100 / 100 100 / 100 Zinacef Inj 1,500 MG In NS Inj 100 / 100 100 / 100 100 ML @ 200 mls/hr IV.SIG Q8H JUDY Rx#:[id number] Oral 200 / 200 480 / 480 Other: # Voids 1 2 # Bowel Movements 0 Weight On Admission 61.235 kg Narrative: GENERAL: Middle-aged white female in no acute distress. SKIN: Focused skin assessment warm and dry. HEENT: PERRL, EOMI. +jaundice, +icterus. CARDIOVASCULAR: Regular rate and rhythm. No obvious murmurs to auscultation. No chest tenderness to palpation. RESPIRATORY: Clear to auscultation, no adventitious breath sounds.. GASTROINTESTINAL: Abdomen soft, less distended, generalized tenderness to palpation. + ascites, but improved. BS normal. MUSCULOSKELETAL: Extremities without clubbing, cyanosis, or edema. No obvious deformities. NEUROLOGICAL: Awake, alert and oriented x4. No focal neurologic deficits. Moving both upper and lower extremities spontaneously. PSYCHIATRIC: Appropriate mood and affect. Insight and judgment normal. Results - Labs CBC & Chem 7: 02/18/18 04:50 02/20/18 07:23 Laboratory Results - last 24 hr 02/20/18 07:23 Sodium 127 L Potassium 3.6 Chloride 90 L Carbon Dioxide 26.7 Anion Gap 10 BUN 10 Creatinine 0.58 Estimated GFR Greater than 89 Random Glucose 82 Calcium 8.0 L Phosphorus 2.8 Magnesium 2.1 Microbiology 02/17/18 22:26 Blood - Peripheral Aerobic Blood Culture - Preliminary No growth in 3 days 02/17/18 22:26 Blood - Peripheral Anaerobic Blood Culture - Preliminary No growth in 3 days 02/17/18 22:16 Blood - Peripheral Aerobic Blood Culture - Preliminary No growth in 3 days 02/17/18 22:16 Blood - Peripheral Anaerobic Blood Culture - Preliminary No growth in 3 days - Imaging ITS Impressions Chest X-Ray 02/17/18 21:43 CONCLUSION: No acute cardiopulmonary disease. There is no evidence of pneumonia. Paracentesis Ultrasound 02/18/18 00:00 CONCLUSION: 1. Uncomplicated paracentesis. - Procedures paracentesis Assessment and Plan - Assessment (1) Cirrhosis Code(s): K74.60 - Unspecified cirrhosis of liver Status: Acute (2) Hyponatremia Code(s): E87.1 - Hypo-osmolality and hyponatremia Status: Acute (3) Abdominal pain Code(s): R10.9 - Unspecified abdominal pain Status: Acute (4) Ascites Code(s): R18.8 - Other ascites Status: Acute (5) Hypertension Code(s): I10 - Essential (primary) hypertension Status: Chronic (6) History of ETOH abuse Code(s): Z87.898 - Personal history of other specified conditions Status: Chronic (7) Urinary retention Code(s): R33.9 - Retention of urine, unspecified Status: Acute - Plan 67-year-old female with a PMH of HTN, Vertigo, h/o Alcohol Abuse and Cirrhosis who presented to the ER w/ complaints of abdominal pain and distention x1 wk. recently diagnosed with cirrhosis, likely secondary to alcohol abuse. Quit drinking one month ago. CT of abdomen pelvis with findings of moderate ascites. Recently started on antibiotics for UTI. On Macrobid. Ascites; Abdominal pain Cirrhosis, newly diagnosed, likely secondary to alcohol abuse. CT abdomen pelvis 02/12/2018 with findings of ascites, diffuse hepatic disease and cirrhosis -Status post paracentesis 02/18, 4400 cc drained. Follow cytology of fluid GI consulted Continue with Aldactone, Lasix and propranolol - lasix held by GI 02/19 due to Na 126 Patient was noted with leukocytosis with shift, concern for possible SBP. Continue with cefuroxime 2 g IV every 8. Continue antibiotics outpatient per GI may switch to p.o. Bactrim or Cipro. Also on rifaximin and lactulose which was increased today secondary to patient not having any bowel movement. Hyponatremia: Na 127>125, secondary to cirrhosis -monitor I/O -Add 1 g Na; repeat labs in am Urinary retention;resolved -Monitor and recath if needed. Recent UTI -Culture no growth HTN BP well controlled On Atenolol at home -will continue on Propanolol for now. DVT Prophylaxis: Pharmacologic contraindication in light of cirrhosis/high risk of bleeding Repeat labs in am and f/u cytology from peritoneal fluid Poss dc tomorrow if cleared by GI [facility]HC vs snf (1) Cirrhosis Qualifiers: Hepatic cirrhosis type: alcoholic cirrhosis Ascites presence: with ascites Qualified Code(s): K70.31 - Alcoholic cirrhosis of liver with ascites (3) Abdominal pain Qualifiers: Abdominal location: generalized Qualified Code(s): R10.84 - Generalized abdominal pain (4) Ascites Qualifiers: Ascites type: due to alcoholic cirrhosis Qualified Code(s): K70.31 - Alcoholic cirrhosis of liver with ascites (5) Hypertension Qualifiers: Hypertension type: essential hypertension Qualified Code(s): I10 - Essential (primary) hypertension
--- NOTE | 2018-02-20 11:41 | P.DCO ---
- Diagnosis (1) Abdominal pain (2) Ascites - Physical Therapy Order: Evaluate and treat, Improve ambulation, Strength and gait training - Home Health Nursing Order: Medical education, Medication education-adverse effect, Nursing assessment with vital signs - Certification I have seen patient Barbra Ardon on 02/20/18. My clinical findings support the need for the requested home health care services because: Deconditioned with increased weakness I certify that my clinical findings support that this patient is homebound because: Need for psychosocial assistance (1) Abdominal pain Qualifiers: Abdominal location: generalized Qualified Code(s): R10.84 - Generalized abdominal pain (2) Ascites Qualifiers: Ascites type: due to alcoholic cirrhosis Qualified Code(s): K70.31 - Alcoholic cirrhosis of liver with ascites
[2018-02-20 13:04] VITALS: BP 104/62; PULSE 85; RESP 16; TEMP 97.2; O2SAT 92
--- NOTE | 2018-02-20 18:19 | P.DS ---
Date of admission: 02/18/18 01:44 Primary care physician: UNKNOWN Brief History from admission: This is a 67-year-old female with a PMH of HTN, Vertigo, h/o Alcohol Abuse and Cirrhosis who presented to the ER w/ complaints of abdominal pain and distention x1 wk. Reports recent diagnosis of Cirrhosis, likely related to Alcohol Abuse-states she quit drinking approx 1mo ago at the time of her diagnosis. Has been following w/ her PCP and was referred to Dr. Hernandez w/ GI, has upcoming appt next month. Seen in ER on 02/12/18 for similar complaints of abdominal pain, recently started on antibiotics for UTI by PCP, afebrile, no leukocytosis at that time. CT Abd/Pelvis w/ moderate ascites, d/c'd on Macrobid w/ plans for outpatient follow up. Now w/ worsening abdominal pain. Pain is intermittent, severe, 10/10, non-radiating. Notes associated abdominal distention and decreased PO intake. No fever or chills. No nausea, vomiting or diarrhea. On arrival, BP 159/91, HR 111, O2 RA, Afebrile. WBC 11.3 with elevated neutrophil count. Hemoglobin 10.9. INR 1.3. Na 127. Total Bili 4.2. AST 113, ALT 17, ALP 245. CXR w/ no acute findings. DS: Diagnosis - Discharge Diagnosis (1) Cirrhosis Status: Acute (2) Hyponatremia Status: Acute (3) Abdominal pain Status: Acute (4) Ascites Status: Acute (5) Hypertension Status: Chronic (6) History of ETOH abuse Status: Chronic (7) Urinary retention Status: Acute DS: Medications - Discharge Medications Prescriptions: lactulose 30 ml PO TID #1000 ml propranolol 10 mg PO BID #60 tab rifaximin [Xifaxan] 550 mg PO Q12HR #60 tab sodium chloride 1 gm PO DAILY #7 tab spironolactone 50 mg PO DAILY #30 tab DS: Summary Hospital Course: 67-year-old female with a PMH of HTN, Vertigo, h/o Alcohol Abuse and Cirrhosis who presented to the ER w/ complaints of abdominal pain and distention x1 wk. recently diagnosed with cirrhosis, likely secondary to alcohol abuse. Quit drinking one month ago. CT of abdomen pelvis with findings of moderate ascites. Recently started on antibiotics for UTI. On Macrobid. Ascites; Abdominal pain Cirrhosis, newly diagnosed, likely secondary to alcohol abuse. CT abdomen pelvis 02/12/2018 with findings of ascites, diffuse hepatic disease and cirrhosis -Status post paracentesis 02/18, 4400 cc drained. Follow cytology of fluid GI consulted Continue with Aldactone, Lasix and propranolol - lasix held by GI 02/19 due to Na 126 Patient was noted with leukocytosis with shift, concern for possible SBP. Continue with cefuroxime 2 g IV every 8. Continue antibiotics outpatient per GI may switch to p.o. Bactrim or Cipro. Also on rifaximin and lactulose which was increased today. + bowel movement 02/20. Hyponatremia: Na 127>125, secondary to cirrhosis. Asymptomatic -monitor I/O -Add 1 g Na; repeat labs Urinary retention;resolved -Monitor and recath if needed. Recent UTI -Culture no growth HTN BP well controlled On Atenolol at home -will continue on Propanolol for now. DVT Prophylaxis: Pharmacologic contraindication in light of cirrhosis/high risk of bleeding - Time Spent with Patient Total time spent providing and/or coordinating discharge services: Greater than 30 minutes - Quality: VTE Deep Vein Thrombosis/Pulmonary Embolism Present on Admission: No Exam Vital signs: Vital Signs 02/19/18 19:02 02/19/18 20:00 02/20/18 00:47 Temperature 97.3 F L 97.6 F Pulse Rate 85 86 Respiratory Rate 2 L 16 17 Blood Pressure 106/64 132/70 Pulse Oximetry 94 L 96 02/20/18 08:00 02/20/18 12:00 Temperature 97.6 F 97.2 F L Pulse Rate 91 H 85 Respiratory Rate 17 16 Blood Pressure 119/71 104/62 Pulse Oximetry 94 L 92 L Intake & Output 02/19/18 02/20/18 02/20/18 18:59 06:59 18:59 Intake Total 300 / 300 580 / 580 340 / 340 Balance 300 / 300 580 / 580 340 / 340 Weight 58.3 kg 58 kg Intake: IV 100 / 100 100 / 100 100 / 100 Zinacef Inj 1,500 MG In NS Inj 100 / 100 100 / 100 100 / 100 100 ML @ 200 mls/hr IV.SIG Q8H JUDY Rx#:[id number] Oral 200 / 200 480 / 480 240 / 240 Other: # Voids 1 2 Date of Last Bowel Movement 02/20/18 # Bowel Movements 0 1 Weight On Admission 61.235 kg Narrative: GENERAL: Middle-aged white female in no acute distress. SKIN: Focused skin assessment warm and dry. HEENT: PERRL, EOMI. +jaundice, +icterus. CARDIOVASCULAR: Regular rate and rhythm. No obvious murmurs to auscultation. No chest tenderness to palpation. RESPIRATORY: Clear to auscultation, no adventitious breath sounds.. GASTROINTESTINAL: Abdomen soft, less distended, generalized tenderness to palpation. + ascites, but improved. BS normal. MUSCULOSKELETAL: Extremities without clubbing, cyanosis, or edema. No obvious deformities. NEUROLOGICAL: Awake, alert and oriented x4. No focal neurologic deficits. Moving both upper and lower extremities spontaneously. PSYCHIATRIC: Appropriate mood and affect. Insight and judgment normal. Results Procedures completed during hospitalization: paracentesis Labs on day of discharge: Labs from last 24 hours 02/20/18 02/19/18 02/19/18 07:23 06:15 06:15 Sodium 127 L Potassium 3.6 Chloride 90 L Carbon Dioxide 26.7 Anion Gap 10 BUN 10 Creatinine 0.58 Estimated GFR Greater than 89 Random Glucose 82 Calcium 8.0 L Phosphorus 2.8 Magnesium 2.1 MANGO Screen Neg Anti-Smooth Muscle Ab Negative Preliminary micro results at discharge 02/17/18 22:26 Aerobic Blood Culture - Preliminary Blood - Peripheral No growth in 3 days Anaerobic Blood Culture - Preliminary No growth in 3 days 02/17/18 22:16 Aerobic Blood Culture - Preliminary Blood - Peripheral No growth in 3 days Anaerobic Blood Culture - Preliminary No growth in 3 days - Impressions ITS Impressions Chest X-Ray 02/17/18 21:43 CONCLUSION: No acute cardiopulmonary disease. There is no evidence of pneumonia. Paracentesis Ultrasound 02/18/18 00:00 CONCLUSION: 1. Uncomplicated paracentesis. Discharge Plan - Discharge Disposition Patient Disposition: W/Home Health Service - Discharge Condition Condition: Stable - Physicians Team Primary Care Provider: UNKNOWN, Attending Provider: Roc Cheng Other Providers: Bobo Medrano MD
== END 2018-02-20 19:51 | disposition home health service (06) ==
LOC: NEPC 20:54 → NEDA 02-18 01:44 → NEPFCDU 02-18 03:00 → N07 02-19 16:01
PROVIDERS: ADMIT Internal Medicine; ATTEND Internal Medicine

== ENCOUNTER 2018-02-27 08:16 | Inpatient (IN) ==
[2018-02-27] MEDS ORDERED: Sod Chloride 0.9% Inj 1,000 ML IV.SIG ONE (08:37)
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
[2018-02-27 09:19] LABS: Anion Gap 11 meq/L (5-15); Aspartate Aminotransferase 110 U/L (15-37); Blood Urea Nitrogen 20 mg/dL (7-18); Calcium 8.1 mg/dL (8.5-10.1); Carbon Dioxide 24.4 meq/L (21.0-32.0); Chloride 94 meq/L (98-107); Glomerular Filtration Rate 35 mL/min (>89); Glucose,Random 97 mg/dL (74-106); Potassium 4.6 meq/L (3.5-5.1); Sodium 129 meq/L (136-145)
[2018-02-27 09:20] LABS: Alanine Aminotransferase 16 U/L (10-53)
[2018-02-27 09:24] LABS: Alkaline Phosphatase 246 U/L (45-117); Creatine Kinase 45 U/L (26-192); Total Protein 6.1 g/dL (6.4-8.2)
[2018-02-27 09:27] LABS: Baso # (Auto) 0.1 th/mm3 (0.0-0.2); Baso % (Auto) 0.5 % (0.0-2.0); Eos # (Auto) 1.2 th/mm3 (0.0-0.4); Eos % (Auto) 8.2 % (0.0-4.0); Hematocrit 33.2 % (35.0-46.0); Hemoglobin 10.9 gm/dL (11.6-15.3); Lymph # (Auto) 2.6 th/mm3 (1.0-4.8); Mean Corpuscular HGB Conc 32.9 % (32.0-36.0); Mean Corpuscular Hemoglobin 32.1 pg (27.0-34.0); Mean Corpuscular Volume 97.7 fL (80.0-100.0); Mean Platelet Volume 8.4 fL (7.0-11.0); Mono # (Auto) 1.4 th/mm3 (0.0-0.9); Mono % (Auto) 9.8 % (0.0-8.0); Neut # (Auto) 9.3 th/mm3 (1.8-7.7); Neut % (Auto) 63.5 % (16.0-70.0); Platelet Count 113 th/mm3 (150-450); Red Cell Distribution Width 15.3 % (11.6-17.2); White Blood Count 14.6 th/mm3 (4.0-11.0)
[2018-02-27 09:46] LABS: Activated Partial Thrombo Time 29.3 sec (24.3-30.1); INR 1.3 Ratio; Prothrombin Time 13.2 sec (9.8-11.6)
[2018-02-27 11:49] LABS: Amorphous Sediment,Urine Few /hpf; Bacteria,Urine Rare /hpf; Bilirubin,Urine Negative (Negative); Clarity,Urine Cloudy (Clear); Color,Urine Amber (Yellw/Straw); Glucose,Urine (UA) Negative (Negative); Hyaline Casts,Urine 3 /lpf (0-3); Leukocyte Esterase,Urine Negative (Negative); Mucus,Urine Few /lpf (Occasional); Nitrite,Urine Negative (Negative); Specific Gravity,Urine 1.017 (1.002-1.035); Squamous Epithelial Cell,Urine 1 /hpf (0-5)
[2018-02-27] MEDS ORDERED: Acetaminophen 325 MG Tablet PO PRN (13:20)
[2018-02-27] MEDS ORDERED: Bisacodyl 10 MG Supp RECTAL PRN (13:20)
[2018-02-27] MEDS: Sod Chloride 0.9% Inj 1,000 ML IV.CONT SCH (14:17)
--- NOTE | 2018-02-27 20:14 | ECG ---
Date Performed: 02/27/2018 Time Performed: 08:34:23 PTAGE: 67 years EKG: Sinus rhythm LOW QRS VOLTAGE ABNORMAL ECG PREVIOUS TRACING : 08/27/2017 03.27 Since the previous tracing, no significant change noted DOCTOR: Radha Pritchard Interpretating Date/Time 02/27/2018 20:13:19
[2018-02-27] MEDS ORDERED: diazePAM 5 MG Tablet PO ONE (21:06)
[2018-02-28] MEDS: Senna/Docusate Sodium 8.6/50 MG Tablet PO SCH ×3 (05:01→20:40)
[2018-02-28 06:11] LABS: Baso # (Auto) 0.1 th/mm3 (0.0-0.2); Baso % (Auto) 1.1 % (0.0-2.0); Eos # (Auto) 1.2 th/mm3 (0.0-0.4); Eos % (Auto) 9.6 % (0.0-4.0); Hematocrit 30.6 % (35.0-46.0); Hemoglobin 10.1 gm/dL (11.6-15.3); Lymph # (Auto) 2.4 th/mm3 (1.0-4.8); Lymph % (Auto) 19.3 % (9.0-44.0); Mean Corpuscular Hemoglobin 32.4 pg (27.0-34.0); Mean Platelet Volume 8.5 fL (7.0-11.0); Mono # (Auto) 1.1 th/mm3 (0.0-0.9); Mono % (Auto) 8.6 % (0.0-8.0); Neut # (Auto) 7.6 th/mm3 (1.8-7.7); Neut % (Auto) 61.4 % (16.0-70.0); Platelet Count 306 th/mm3 (150-450); Red Blood Count 3.12 mil/mm3 (4.00-5.30); Red Cell Distribution Width 14.9 % (11.6-17.2); White Blood Count 12.4 th/mm3 (4.0-11.0)
[2018-02-28 06:30] LABS: Alkaline Phosphatase 221 U/L (45-117); Total Protein 5.7 g/dL (6.4-8.2)
[2018-02-28 06:36] LABS: Alanine Aminotransferase 14 U/L (10-53); Albumin 1.9 g/dL (3.4-5.0); Anion Gap 10 meq/L (5-15); Aspartate Aminotransferase 126 U/L (15-37); Blood Urea Nitrogen 21 mg/dL (7-18); Calcium 8.2 mg/dL (8.5-10.1); Carbon Dioxide 23.3 meq/L (21.0-32.0); Chloride 98 meq/L (98-107); Glomerular Filtration Rate 36 mL/min (>89); Glucose,Random 85 mg/dL (74-106); Sodium 131 meq/L (136-145)
[2018-02-28 06:48] LABS: Potassium 5.3 meq/L (3.5-5.1)
[2018-02-28] MEDS: Sod Chloride 0.9% Inj 1,000 ML IV.CONT SCH (09:06)
[2018-02-28] MEDS: Propranolol 10 MG Tablet PO SCH ×2 (11:24→20:45)
[2018-02-28] MEDS: diazePAM 2 MG Tablet PO PRN (11:24)
[2018-02-28] MEDS: rifAXIMin 550 MG Tablet PO SCH ×2 (11:24→20:38)
[2018-02-28] MEDS ORDERED: Albumin Human 25% Inj 150 ML IV.SIG ONE (15:00)
[2018-02-28 17:22] LABS: Eosinophils,Peritoneal Fluid 1 %; Mesothelial,Peritoneal Fluid 1 %; Neutrophils,Peritoneal Fluid 10 %
[2018-02-28 17:47] LABS: RBC,Peritoneal Fluid 17 /mm3 (0-0)
[2018-03-01 06:28] LABS: Baso # (Auto) 0.2 th/mm3 (0.0-0.2); Baso % (Auto) 1.7 % (0.0-2.0); Eos # (Auto) 1.2 th/mm3 (0.0-0.4); Hematocrit 28.1 % (35.0-46.0); Hemoglobin 9.4 gm/dL (11.6-15.3); Lymph # (Auto) 1.8 th/mm3 (1.0-4.8); Lymph % (Auto) 15.5 % (9.0-44.0); Mean Corpuscular HGB Conc 33.6 % (32.0-36.0); Mean Corpuscular Hemoglobin 32.5 pg (27.0-34.0); Mean Corpuscular Volume 96.7 fL (80.0-100.0); Mean Platelet Volume 8.1 fL (7.0-11.0); Mono # (Auto) 1.3 th/mm3 (0.0-0.9); Mono % (Auto) 10.8 % (0.0-8.0); Neut # (Auto) 7.2 th/mm3 (1.8-7.7); Platelet Count 274 th/mm3 (150-450); Red Cell Distribution Width 15.4 % (11.6-17.2); White Blood Count 11.7 th/mm3 (4.0-11.0)
[2018-03-01 06:59] LABS: Carbon Dioxide 24.5 meq/L (21.0-32.0); Magnesium 2.1 mg/dL (1.5-2.5); Potassium 3.9 meq/L (3.5-5.1); Total Protein 4.8 g/dL (6.4-8.2)
[2018-03-01] MEDS: Sod Chloride 0.9% Inj 1,000 ML IV.CONT SCH (08:15)
[2018-03-01] MEDS: Senna/Docusate Sodium 8.6/50 MG Tablet PO SCH ×2 (08:17→21:17)
[2018-03-01] MEDS: Propranolol 10 MG Tablet PO SCH ×2 (08:17→21:17)
[2018-03-01] MEDS: rifAXIMin 550 MG Tablet PO SCH ×2 (08:18→21:17)
[2018-03-01] MEDS: Fluconazole 100 MG Tablet PO SCH (14:45)
[2018-03-01 17:04] LABS: Creatinine,Urine Random 155 mg/dL (27-300)
[2018-03-01] MEDS ORDERED: Albumin Human 25% Inj 100 ML IV.SIG ONE (18:00)
[2018-03-01] MEDS: diazePAM 2 MG Tablet PO PRN (21:17)
[2018-03-02] MEDS: Sod Chloride 0.9% Inj 1,000 ML IV.CONT SCH (05:36)
[2018-03-02 06:55] LABS: Baso # (Auto) 0.1 th/mm3 (0.0-0.2); Baso % (Auto) 1.3 % (0.0-2.0); Eos # (Auto) 1.2 th/mm3 (0.0-0.4); Hematocrit 29.7 % (35.0-46.0); Lymph # (Auto) 2.4 th/mm3 (1.0-4.8); Lymph % (Auto) 21.7 % (9.0-44.0); Mean Corpuscular HGB Conc 33.6 % (32.0-36.0); Mean Corpuscular Hemoglobin 32.5 pg (27.0-34.0); Mean Corpuscular Volume 96.8 fL (80.0-100.0); Mono % (Auto) 8.7 % (0.0-8.0); Neut # (Auto) 6.3 th/mm3 (1.8-7.7); Neut % (Auto) 57.3 % (16.0-70.0); Platelet Count 279 th/mm3 (150-450); Red Blood Count 3.07 mil/mm3 (4.00-5.30); Red Cell Distribution Width 15.3 % (11.6-17.2)
[2018-03-02 07:59] LABS: Calcium 8.1 mg/dL (8.5-10.1); Carbon Dioxide 23.1 meq/L (21.0-32.0); Magnesium 1.7 mg/dL (1.5-2.5)
[2018-03-02] MEDS: rifAXIMin 550 MG Tablet PO SCH (08:16)
[2018-03-02] MEDS: Propranolol 10 MG Tablet PO SCH (08:19)
[2018-03-02] MEDS: Senna/Docusate Sodium 8.6/50 MG Tablet PO SCH (08:19)
[2018-03-02] MEDS: Fluconazole 100 MG Tablet PO SCH ×2 (12:15→14:34)
== END 2018-03-02 15:13 ==
LOC: NEPC 08:16 → NEDA 11:35 → N05 14:02
PROVIDERS: ADMIT Hospitalist; ATTEND Hospitalist